=== PATIENT | female | born 1985 | race Caucasian/White ===

== ENCOUNTER 2017-06-08 19:15 | Emergency (ER) | payer OTHER ==
[2017-06-08] MEDS: DIPHTH,PERTUSS(ACELL),TET TOX 0.5 ML DISP.SYRIN. VAX IM (20:45)
[2017-06-08] MEDS: HYDROcodone/APAP 5/325MG 1 TAB TABLET PO (20:45)
== END 2017-06-08 21:06 | disposition home or self-care (01) ==
LOC: ER 19:15
DX: S62.316A Displaced fracture of base of fifth metacarpal bone, right hand, initial encounter for closed fracture (principal); Z98.51 Tubal ligation status; Z88.1 Allergy status to other antibiotic agents; W22.8XXA Striking against or struck by other objects, initial encounter; Y93.89 Activity, other specified; Y92.89 Other specified places as the place of occurrence of the external cause; Y99.8 Other external cause status
CPT/HCPCS: 29125; 73110; 90471; 90715; 99284-25

== ENCOUNTER → 2017-06-14 | Outpatient (CLI) | payer OTHER ==
[2017-06-14] MEDS: IOHEXOL 300 MG/ML 100ML VIAL. IV (11:20)
== END | disposition home or self-care (01) ==
LOC: KCIC CT 10:48
DX: S62.101A Fracture of unspecified carpal bone, right wrist, initial encounter for closed fracture (principal); X58.XXXA Exposure to other specified factors, initial encounter; Y93.89 Activity, other specified; Y92.89 Other specified places as the place of occurrence of the external cause; Y99.8 Other external cause status
CPT/HCPCS: Q9967

== ENCOUNTER 2018-09-15 13:28 | Inpatient (IN) | payer OTHER ==
[~2018-09-15] VITALS: Ht 152.4 cm; Wt 90.5 kg
[~2018-09-15 13:28] MED LIST: HYDR-3164 PO
[2018-09-15] MEDS ORDERED: IV NORMAL SALINE 1000ML BAG 1,000 ML IV SCH (13:51)
[2018-09-15] MEDS ORDERED: KETOROLAC 30 MG/ML VIAL. IV ONE (14:00)
[2018-09-15] MEDS ORDERED: ONDANSETRON PF 4 MG/2 ML VIAL. IV ONE (14:00)
--- NOTE | 2018-09-15 14:05 | PHYS DOC ---
Past Medical History Past Medical History: Kidney Stone Past Surgical History: Tubal ligation Additional Past Surgical Histo: HERNIA Smoking: Cigarettes Alcohol Use: None Drug Use: None Adult General Chief Complaint Chief Complaint: FLANK PAIN [facility] HPI Patient is a 33 year old female who presents with complaining of left flank pain. Patient complaining of sudden onset of left flank pain 3 days ago as a constant sharp pain with radiation to the left lower quadrant. Patient states the pain getting better and worse and rated her pain 7/10 at arrival to ER. Patient states she had 2 episodes of vomiting 3 days ago when her pain was started and was seen at another emergency room and had 4.6 mm distal left side and was advised to follow-up with urologist as needed. Patient states she ran out of hydrocodone but her pain is not getting better and she didn't pass this stone. Patient denies fever and chills, , diarrhea and constipation. Review of Systems Review of Systems Constitutional: Denies fever or chills [] Eyes: Denies change in visual acuity, redness, or eye pain [] HENT: Denies nasal congestion or sore throat [] Respiratory: Denies cough or shortness of breath [] Cardiovascular: No additional information not addressed in HPI [] GI: Reports abdominal pain, nausea, vomiting, denies bloody stools or diarrhea [ ] : Denies dysuria or hematuria, reports flank pain [] Musculoskeletal: Denies back pain or joint pain [] Integument: Denies rash or skin lesions [] Neurologic: Denies headache, focal weakness or sensory changes [] Endocrine: Denies polyuria or polydipsia [] All other systems were reviewed and found to be within normal limits, except as documented in this note. Current Medications Current Medications Current Medications Medications (Trade) Dose Ordered Sig/Greer Start Time Stop Time Status Last Admin Dose Admin Ceftriaxone Sodium (Rocephin) 1 gm 1X ONCE 09/15/18 15:45 09/15/18 15:46 DC 09/15/18 15:52 1 GM Fentanyl Citrate (Fentanyl 2ml Vial) 100 mcg STK-MED ONCE 09/15/18 14:41 09/15/18 14:42 DC Ketorolac Tromethamine (Toradol 30mg Vial) 30 mg 1X ONCE 09/15/18 14:00 09/15/18 14:01 DC 09/15/18 14:02 30 MG Ondansetron HCl (Zofran) 4 mg 1X ONCE 09/15/18 14:00 09/15/18 14:01 DC 09/15/18 14:02 4 MG Sodium Chloride 1,000 ml @ 1,000 mls/hr 1X ONCE 09/15/18 15:45 09/15/18 16:44 DC 09/15/18 15:43 1,000 MLS/HR Allergies Allergies Allergies Coded Allergies Type Severity Reaction Last Updated Verified azithromycin Allergy Intermediate 09/15/18 Yes Physical Exam Physical Exam Constitutional: Well developed, well nourished, moderate distress, non-toxic appearance. [] HENT: Normocephalic, atraumatic, oropharynx moist. Eyes: PERRLA, EOMI, conjunctiva normal, no discharge. [] Neck: Normal range of motion, no tenderness, supple, no stridor. [] Cardiovascular:Heart rate regular rhythm, no murmur [] Lungs & Thorax: Bilateral breath sounds clear to auscultation [] Abdomen: Bowel sounds normal, soft, no tenderness, no masses, no pulsatile masses. [] Skin: Warm, dry, no erythema, no rash. [] Back: No tenderness, mild left CVA tenderness. [] Extremities: No tenderness, no cyanosis, no clubbing, ROM intact, no edema. [] Neurologic: Alert and oriented X 3, normal motor function, normal sensory function, no focal deficits noted. [] Psychologic: Affect normal, judgement normal, mood normal. [] Current Patient Data Vital Signs Vital Signs Date Time Temp Pulse Resp B/P (MAP) Pulse Ox O2 Delivery O2 Flow Rate FiO2 09/15/18 15:14 18 09/15/18 14:47 114/62 (79) 09/15/18 13:33 97.6 89 98 97.6 Lab Values Laboratory Tests Test 09/15/18 13:30 09/15/18 13:45 09/15/18 13:52 09/15/18 15:55 Urine Collection Type Unknown Urine Color Dk yellow Urine Clarity Clear Urine pH 6.0 Urine Specific Lillian 1.025 Urine Protein 100 mg/dL (NEG-TRACE) Urine Glucose (UA) Negative mg/dL (NEG) Urine Ketones (Stick) >=80 mg/dL (NEG) Urine Blood Large (NEG) Urine Nitrite Negative (NEG) Urine Bilirubin Moderate (NEG) Urine Urobilinogen Dipstick 2.0 mg/dL (0.2 mg/dL) Urine Leukocyte Esterase Moderate (NEG) Urine RBC 20-40 /HPF (0-2) Urine WBC 20-40 /HPF (0-4) Urine Squamous Epithelial Cells Few /LPF Urine Bacteria Moderate /HPF (0-FEW) Urine Mucus Marked /LPF Urine Opiates Screen Pos (NEG) Urine Methadone Screen Neg (NEG) Urine Barbiturates Neg (NEG) Urine Phencyclidine Screen Neg (NEG) Urine Amphetamine/Methamphetamine Neg (NEG) Urine Benzodiazepines Screen Neg (NEG) Urine Cocaine Screen Neg (NEG) Urine Cannabinoids Screen Pos (NEG) Urine Ethyl Alcohol Neg (NEG) White Blood Count 14.7 x10^3/uL (4.0-11.0) H Red Blood Count 5.02 x10^6/uL (3.50-5.40) Hemoglobin 14.1 g/dL (12.0-15.5) Hematocrit 42.4 % (36.0-47.0) Mean Corpuscular Volume 84 fL (79-100) Mean Corpuscular Hemoglobin 28 pg (25-35) Mean Corpuscular Hemoglobin Concent 33 g/dL (31-37) Red Cell Distribution Width 16.2 % (11.5-14.5) H Platelet Count 129 x10^3/uL (140-400) L Neutrophils (%) (Auto) 86 % (31-73) H Lymphocytes (%) (Auto) 10 % (24-48) L Monocytes (%) (Auto) 2 % (0-9) Eosinophils (%) (Auto) 1 % (0-3) Basophils (%) (Auto) 0 % (0-3) Neutrophils # (Auto) 12.6 x10^3uL (1.8-7.7) H Lymphocytes # (Auto) 1.5 x10^3/uL (1.0-4.8) Monocytes # (Auto) 0.4 x10^3/uL (0.0-1.1) Eosinophils # (Auto) 0.2 x10^3/uL (0.0-0.7) Basophils # (Auto) 0.0 x10^3/uL (0.0-0.2) Segmented Neutrophils % 66 % (35-66) Band Neutrophils % 15 % (0-9) H Lymphocytes % 13 % (24-48) L Monocytes % 1 % (0-10) Eosinophils % 5 % (0-5) Toxic Granulation Slight Toxic Vacuolation Slight Platelet Estimate Decreased (ADEQUATE) Sodium Level 136 mmol/L (136-145) Potassium Level 3.5 mmol/L (3.5-5.1) Chloride Level 102 mmol/L (98-107) Carbon Dioxide Level 25 mmol/L (21-32) Anion Gap 9 (6-14) Blood Urea Nitrogen 14 mg/dL (7-20) Creatinine 0.8 mg/dL (0.6-1.0) Estimated GFR (Cockcroft-Gault) 82.6 BUN/Creatinine Ratio 18 (6-20) Glucose Level 87 mg/dL (70-99) Calcium Level 8.8 mg/dL (8.5-10.1) Total Bilirubin 1.0 mg/dL (0.2-1.0) Aspartate Amino Transferase (AST) 23 U/L (15-37) Alanine Aminotransferase (ALT) 20 U/L (14-59) Alkaline Phosphatase 90 U/L (46-116) Total Protein 7.2 g/dL (6.4-8.2) Albumin 3.1 g/dL (3.4-5.0) L Albumin/Globulin Ratio 0.8 (1.0-1.7) L Lipase 37 U/L (73-393) L POC Urine HCG, Qualitative Hcg negative (Negative) Lactic Acid Level 0.8 mmol/L (0.4-2.0) Laboratory Tests 09/15/18 13:45 Laboratory Tests 09/15/18 13:45 EKG EKG [] Radiology/Procedures Radiology/Procedures [facility] [address] [place], [place] [id number] IMAGING REPORT Signed PATIENT: LEI SHEARER ACCOUNT: [id number] : 1985 LOCATION: ER AGE: 33 SEX: F EXAM STATUS: REG ER ORD. PHYSICIAN: YADI TREADWELL MD REASON: left flank pain PROCEDURE: CT ABDOMEN PELVIS WO CONTRAST Abdominal and Pelvis CT, Without Contrast: History: Left flank pain. Comparison: None. Procedure: Axial images are obtained of the abdomen and pelvis, without IV or oral contrast. CT Abdomen without Contrast: Findings: Evaluation of solid organs is limited without contrast. Evaluation of stomach and bowel is limited without oral contrast. Liver: Normal. Spleen: Normal. Pancreas: Normal. Adrenal Glands: Normal. Kidneys: There is moderate left hydronephrosis and left hydroureter perinephric edema. There is a small nonobstructive stone in the left renal pelvis. There is no free air or free fluid. There is no lymphadenopathy. Impression: Please see CT Pelvis without Contrast. End Impression. CT Pelvis without Contrast: Findings: The urinary bladder is mostly collapsed. There is a 6 mm stone at left UVJ. There is an IUD in the uterus which appears well seated. There is a 2.1 cm dominant follicle versus small cyst in the right ovary. The appendix is normal. There is retroperitoneal edema on the left. There is no free fluid. There is no lymphadenopathy. There is no pericolonic inflammation identified. Impression: 6 mm stone left UVJ with moderate left hydroureter and hydronephrosis. End impression PQRS Compliance Statement: One or more of the following individualized dose reduction techniques were utilized for this examination: 1. Automated exposure control 2. Adjustment of the mA and/or kV according to patient size 3. Use of iterative reconstruction technique Electronically signed by: Jo Ann Boyd III, MD (09/15/2018 3:37 PM) [id number] DICTATED and SIGNED BY: JO ANN BOYD III, MD DATE: 09/15/18 1537 Course & Med Decision Making Course & Med Decision Making Pertinent Labs and Imaging studies reviewed. (See chart for details) Evaluation of patient in ER showed 33-year-old female patient with left flank pain and kidney stone and 2 other emergency room visits at [facility] with continued to have pain. Patient treated with several days of pain medication. CT showed 6 mm stone in left ureter junction with moderate hydronephrosis. Patient had UTI and Rocephin was started. Patient requiring admission for further evaluation and treatment. Discussed with Dr. Serrato who is in agreement with admission. Discussed findings and plan with patient and family, who acknowledge understanding and agreement. Dragon Disclaimer Dragon Disclaimer This electronic medical record was generated, in whole or in part, using a voice recognition dictation system. Departure Departure Impression: Primary Impression: Renal colic Additional Impressions: UTI (urinary tract infection) Ureterolithiasis Hydronephrosis Intractable pain Tobacco abuse Tobacco abuse counseling Disposition: 09 ADMITTED INPATIENT (at 1605) Admitting Physician: Clara Serrato (accepted admission at 1603) Condition: IMPROVED Referrals: NO PCP (PCP) Problem Qualifiers Additional Impressions: UTI (urinary tract infection) Urinary tract infection type: site unspecified Hematuria presence: with hematuria Qualified Codes: N39.0 - Urinary tract infection, site not specified ; R31.9 - Hematuria, unspecified Hydronephrosis Hydronephrosis type: with ureteral calculous obstruction Qualified Codes: N13.2 - Hydronephrosis with renal and ureteral calculous obstruction YADI TREADWELL MD Sep 15, 2018 14:05
[2018-09-15 14:07] LABS: BILIRUBIN,URINE MODERATE (NEG); CLARITY,URINE CLEAR; NITRITE,URINE NEGATIVE (NEG); PROTEIN,URINE 100 mg/dL (NEG-TRACE)
[2018-09-15 14:08] LABS: BASO % 0 % (0-3); EOS # 0.2 x10^3/uL (0.0-0.7); EOS % 1 % (0-3); HEMATOCRIT 42.4 % (36.0-47.0); HEMOGLOBIN 14.1 g/dL (12.0-15.5); LYMPH # 1.5 x10^3/uL (1.0-4.8); LYMPH % 10 % (24-48); MEAN CORPUSCULAR HEMOGLOBIN 28 pg (25-35); MEAN CORPUSCULAR HGB CONC 33 g/dL (31-37); MEAN CORPUSCULAR VOLUME 84 fL (79-100); MONO # 0.4 x10^3/uL (0.0-1.1); MONO % 2 % (0-9); NEUT # 12.6 x10^3uL (1.8-7.7); NEUT % 86 % (31-73); PLATELET COUNT 129 x10^3/uL (140-400); RED BLOOD COUNT 5.02 x10^6/uL (3.50-5.40); RED CELL DISTRIBUTION WIDTH 16.2 % (11.5-14.5); WHITE BLOOD COUNT 14.7 x10^3/uL (4.0-11.0)
[2018-09-15 14:13] LABS: CALCIUM 8.8 mg/dL (8.5-10.1); CREATININE 0.8 mg/dL (0.6-1.0); GFR 82.6; POTASSIUM 3.5 mmol/L (3.5-5.1)
[2018-09-15 14:13] LABS: BARBITURATES NEG (NEG); BENZODIAZEPINES NEG (NEG); CANNABINOIDS POS (NEG); COCAINE NEG (NEG); METHADONE NEG (NEG); OPIATES POS (NEG); PHENCYCLIDINE NEG (NEG)
[2018-09-15 14:14] LABS: AMPHETAMINE/METHAMPHETAMINE NEG (NEG)
[2018-09-15 14:15] LABS: COLOR,URINE DK YELLOW
[2018-09-15 14:17] LABS: BACTERIA,URINE MODERATE /HPF (0-FEW); RBC,URINE 20-40 /HPF (0-2); SQUAMOUS EPITHELIAL CELL,UR FEW /LPF; WBC,URINE 20-40 /HPF (0-4)
[2018-09-15 14:19] LABS: ALBUMIN 3.1 g/dL (3.4-5.0); ALBUMIN/GLOBULIN RATIO 0.8 (1.0-1.7); TOTAL PROTEIN 7.2 g/dL (6.4-8.2)
[2018-09-15 14:30] LABS: % BANDS 15 % (0-9); % EOS 5 % (0-5); % LYMPHS 13 % (24-48); % MONOS 1 % (0-10); % SEGS 66 % (35-66); PLT ESTIMATE DECREASED (ADEQUATE)
[2018-09-15 14:32] LABS: TOXIC GRANULATION SLIGHT; TOXIC VACUOLATION SLIGHT
[2018-09-15] MEDS ORDERED: fentaNYL PF VIAL 100 MCG/2 ML VIAL ONE (14:41)
[2018-09-15] MEDS ORDERED: fentaNYL PF VIAL 100 MCG/2 ML VIAL IV ONE ×2 (14:45→16:30)
--- NOTE | 2018-09-15 15:40 | RAD ---
Abdominal and Pelvis CT, Without Contrast: History: Left flank pain. Comparison: None. Procedure: Axial images are obtained of the abdomen and pelvis, without IV or oral contrast. CT Abdomen without Contrast: Findings: Evaluation of solid organs is limited without contrast. Evaluation of stomach and bowel is limited without oral contrast. Liver: Normal. Spleen: Normal. Pancreas: Normal. Adrenal Glands: Normal. Kidneys: There is moderate left hydronephrosis and left hydroureter perinephric edema. There is a small nonobstructive stone in the left renal pelvis. There is no free air or free fluid. There is no lymphadenopathy. Impression: Please see CT Pelvis without Contrast. End Impression. CT Pelvis without Contrast: Findings: The urinary bladder is mostly collapsed. There is a 6 mm stone at left UVJ. There is an IUD in the uterus which appears well seated. There is a 2.1 cm dominant follicle versus small cyst in the right ovary. The appendix is normal. There is retroperitoneal edema on the left. There is no free fluid. There is no lymphadenopathy. There is no pericolonic inflammation identified. Impression: 6 mm stone left UVJ with moderate left hydroureter and hydronephrosis. End impression PQRS Compliance Statement: One or more of the following individualized dose reduction techniques were utilized for this examination: 1. Automated exposure control 2. Adjustment of the mA and/or kV according to patient size 3. Use of iterative reconstruction technique Electronically signed by: Caleb Hernandez III, MD (09/15/2018 3:37 PM) [id number]
[2018-09-15] MEDS ORDERED: cefTRIAXone IV Push 1 GM VIAL. IVP ONE (15:45)
[2018-09-15] MEDS ORDERED: IV NORMAL SALINE 1000ML BAG 1,000 ML IV ONE (15:45)
[2018-09-15] MEDS ORDERED: TRAM50TA PO (18:03)
[2018-09-15] MEDS ORDERED: ONDA8TAB15 PO (18:03)
[2018-09-15] MEDS ORDERED: TRAZ-86 PO (18:03)
[2018-09-15] MEDS: IV NORMAL SALINE 1000ML BAG 1,000 ML IV SCH (18:56)
[2018-09-15] MEDS ORDERED: ONDANSETRON PF 4 MG/2 ML VIAL. IV PRN (19:00)
[2018-09-15] MEDS ORDERED: fentaNYL PF VIAL 100 MCG/2 ML VIAL IV PRN (19:00)
[2018-09-15] MEDS: fentaNYL PF VIAL 100 MCG/2 ML VIAL IV PRN ×2 (19:04→21:28)
[2018-09-15] MEDS ORDERED: ACET325T9 PO (19:50)
[2018-09-15 19:55] VITALS: BP 125/81
[2018-09-15] MEDS ORDERED: traZODone 100 MG TABLET. PO PRN (20:00)
[2018-09-15] MEDS ORDERED: ACETAMINOPHEN 325 MG TABLET. PO PRN (20:00)
[2018-09-15] MEDS ORDERED: HYDROcodone/APAP 5/325MG 1 TAB TABLET PO PRN (20:00)
[2018-09-15] MEDS ORDERED: ZOLPIDEM 5 MG TABLET. PO PRN (21:30)
--- NOTE | 2018-09-15 22:46 | HP ---
ADMIT DATE: 09/15/2018 CHIEF COMPLAINT: Flank pain. HISTORY OF PRESENT ILLNESS: The patient is a pleasant, healthy 33-year-old female who presents with flank pain. It has been occurring for 3 days, but it got really sharp today, rated at 10 out of 10. She has a history of renal stones. We did a CAT scan showing another renal stone about 6 mm. Food makes her nauseated. She describes it as agonizing. I discussed the case with the ER physician. We are going to admit the patient and give her some IV fluids, pain meds, strain her urine and consult Urology. PAST MEDICAL HISTORY: Kidney stones and tubal ligation, hernia repair and tobacco abuse. ALLERGIES: None. FAMILY HISTORY: Renal stones. SOCIAL HISTORY: She does smoke. No drinking or drugs. MEDICATIONS: Reviewed, please refer to the MRAD. REVIEW OF SYSTEMS: GENERAL: No history of weight change, weakness or fevers. SKIN: No bruising, hair changes or rashes. EYES: No blurred, double or loss of vision. NOSE AND THROAT: No history of nosebleeds, hoarseness or sore throat. MUSCULOSKELETAL: She complains of flank pain. HEART: No history of palpitations, chest pain or shortness of breath on exertion. LUNGS: Denies cough, hemoptysis, wheezing or shortness of breath. GASTROINTESTINAL: Denies changes in appetite, vomiting, diarrhea or constipation. She complains of some nausea. GENITOURINARY: No history of frequency, urgency, hesitancy or nocturia. NEUROLOGIC: Denies history of numbness, tingling, tremor or weakness. PSYCHIATRIC: No history of panic, anxiety or depression. ENDOCRINE: No history of heat or cold intolerance, polyuria or polydipsia. EXTREMITIES: Denies muscle weakness, joint pain, pain on walking or stiffness. PHYSICAL EXAMINATION: VITAL SIGNS: Temperature afebrile, pulse 94, respirations 16, blood pressure 133/68. GENERAL: She is alert, cooperative, appears to be in pain. HEART: Normal S1, S2. LUNGS: Clear. ABDOMEN: Soft and tender in the flank. EXTREMITIES: Trace edema. SKIN: No rash. ENDOCRINE: No thyromegaly. LYMPHATICS: No cervical nodes. HEMATOPOIETIC: No bruising. PSYCHIATRIC: She is depressed. LABORATORY DATA: White count 14.7, hemoglobin 14.1, platelets 129. Electrolytes are normal. CT of the abdomen shows renal stone. Urinalysis shows moderate leukocyte esterase and 20-40 white cells. ASSESSMENT AND PLAN: Renal stone and urinary tract infection. The patient has been admitted. We will start IV fluids, IV antibiotics, p.r.n. pain meds. DVT prophylaxis. Full code. Home meds. Consult Urology. KORTNEY BAEZ DO DR: LAINA/maria elena JOB#: [id number] / [id number]
[2018-09-15] MEDS ORDERED: cefTRIAXone IV Push 1 GM VIAL. IVP SCH (23:00)
[2018-09-15 23:51] VITALS: BP 107/72
[2018-09-16] MEDS: IV NORMAL SALINE 1000ML BAG 1,000 ML IV SCH ×3 (03:15→12:50)
[2018-09-16 03:22] VITALS: BP 136/94
[2018-09-16 07:00] VITALS: BP 123/81
--- NOTE | 2018-09-16 08:38 | PDOC2 ---
UROLOGY CONSULT Date of Consult Date of Consult DATE: 09/16/18 TIME: 08:28 Reason for Consult Reason for Consult: 6 mm left stone in the left UVJ with moderate left hydroureter and hydronephrosis Source Source: Chart review, Patient History of Present Illness Reason for Visit: Patient is a pleasant 33 year old female who presented to ED last night with left flank pain and left lower abd pain. A CT scan was done and she was found ot have a 6 mm stone in the left UVJ with moderate left hydroureter and hydronephrosis. This is the second time she has had a stone. The first time was in 2010 and this one passed on its own. She denies nausea/vomiting, hematuria or dysuria. Her pain is about 5-6/10 and is on the left flank into her left lower abdomen. She is healthy overall with the exception of this problem with no history of any chronic health problems. She is agreeable to having a stent placed if it is the right thing for her condition. Past Medical History Cardiovascular: No pertinent hx Pulmonary: No pertinent hx GI: No pertinent hx Heme/Onc: No pertinent hx Hepatobiliary: No pertinent hx Psych: No pertinent hx Rheumatologic: No pertinent hx Infectious disease: No pertinent hx ENT: No pertinent hx Renal/: No pertinent hx Endocrine: No pertinent hx Dermatology: No pertinent hx Grav: 4 Para: 4 Current Problem List Problems: (1) Ureterolithiasis Current Medications Current Medications Current Medications Acetaminophen (Tylenol) 650 mg PRN Q4HRS PRN PO HEADACHE / TEMP Last administered on 09/16/18at 03:14; Start 09/15/18 at 20:00 Acetaminophen/ Hydrocodone Bitart (Lortab 5/325) 1 tab PRN Q4HRS PRN PO pain Last administered on 09/15/18at 21:32; Start 09/15/18 at 20:00 Ceftriaxone Sodium (Rocephin) 1 gm 1X ONCE IVP Last administered on 09/15/18at 15:52; Start 09/15/18 at 15:45; Stop 09/15/18 at 15:46; Status DC Ceftriaxone Sodium (Rocephin) 1 gm Q24H IVP ; Start 09/15/18 at 23:00; Stop at 23:03; Status DC Ceftriaxone Sodium (Rocephin) 1 gm Q24H IVP ; Start 09/16/18 at 16:00 Fentanyl Citrate (Fentanyl 2ml Vial) 25 mcg PRN Q2HR PRN IV MODERATE PAIN; Start 09/15/18 at 19:00 Fentanyl Citrate (Fentanyl 2ml Vial) 50 mcg 1X ONCE IV Last administered on at 14:44; Start 09/15/18 at 14:45; Stop 09/15/18 at 14:46; Status DC Fentanyl Citrate (Fentanyl 2ml Vial) 50 mcg 1X ONCE IV Last administered on at 16:00; Start 09/15/18 at 16:30; Stop 09/15/18 at 16:31; Status DC Fentanyl Citrate (Fentanyl 2ml Vial) 50 mcg PRN Q2HR PRN IV SEVERE PAIN Last administered on 09/15/18at 21:28; Start 09/15/18 at 19:00 Fentanyl Citrate (Fentanyl 2ml Vial) 100 mcg STK-MED ONCE .ROUTE ; Start at 14:41; Stop 09/15/18 at 14:42; Status DC Ketorolac Tromethamine (Toradol 30mg Vial) 30 mg 1X ONCE IV Last administered on 09/15/18at 14:02; Start 09/15/18 at 14:00; Stop 09/15/18 at 14:01; Status DC Ondansetron HCl (Zofran) 4 mg 1X ONCE IV Last administered on 09/15/18at 14:02 ; Start 09/15/18 at 14:00; Stop 09/15/18 at 14:01; Status DC Ondansetron HCl (Zofran) 4 mg PRN Q6HRS PRN IV NAUSEA/VOMITING; Start 09/15/18 at 19:00 Sodium Chloride 1,000 ml @ 150 mls/hr Q6H40M IV Last administered on at 03:15; Start 09/15/18 at 16:50; Stop 09/16/18 at 16:49 Sodium Chloride 1,000 ml @ 1,000 mls/hr 1X ONCE IV Last administered on at 15:43; Start 09/15/18 at 15:45; Stop 09/15/18 at 16:44; Status DC Sodium Chloride 1,000 ml @ 1,000 mls/hr Q1H IV Last administered on 09/15/18at 14:02; Start 09/15/18 at 13:51; Stop 09/15/18 at 14:50; Status DC Trazodone HCl (Desyrel) 100 mg PRN QHS PRN PO INSOMNIA Last administered on at 23:15; Start 09/15/18 at 20:00 Zolpidem Tartrate (Ambien) 5 mg PRN QHS PRN PO INSOMNIA; Start 09/15/18 at 21: 30; Status UNV Allergies Allergies: Coded Allergies: azithromycin (Verified Allergy, Intermediate, 09/15/18) ROS Review Of Systems: CONSTITUTIONAL: + Fever and feeling "hot" off and on EYES: No recent changes SKIN: No rash or itching CARDIOVASCULAR: No chest pain, syncope, palpitations, or edema RESPIRATORY: No SOB or cough GASTROINTESTINAL: + abd pain on the left lower side. NEUROLOGICAL: No headaches or weakness ENDOCRINE: No cold or heat intolerance GENITOURINARY: No urgency or frequency of urination MUSCULOSKELETAL: + back/flank pain on the left side, none on the right. LYMPHATICS: No enlarged lymph nodes PSYCHIATRIC: No anxiety or depression Physical Exam Physical Exam: General: Pleasant, no acute distress, well groomed Eyes: conjunctiva anicteric, eyes full range of motion ENT: moist oral mucosa, normal dentition Neck: Trachea midline, no masses Respiratory: unlabored breathing, not using accessory muscles Back: + CVA pain on the left side, non tender on the right. Abdomen: soft, + tender on the left side, non tender on the right. Skin: no rashes or skin lesions on visualized skin Psych: normal mood, affect. Alert and oriented x 3. Vitals VITALS Vital Signs Date Time Temp Pulse Resp B/P (MAP) Pulse Ox O2 Delivery O2 Flow Rate FiO2 09/16/18 03:22 100.6 90 20 136/94 (108) 94 Room Air 100.6 Labs Labs Laboratory Tests Test 09/15/18 13:30 09/15/18 13:45 09/15/18 13:52 09/15/18 15:55 Urine Collection Type Unknown Urine Color Dk yellow Urine Clarity Clear Urine pH 6.0 Urine Specific [place] 1.025 Urine Protein 100 mg/dL (NEG-TRACE) Urine Glucose (UA) Negative mg/dL (NEG) Urine Ketones (Stick) >=80 mg/dL (NEG) Urine Blood Large (NEG) Urine Nitrite Negative (NEG) Urine Bilirubin Moderate (NEG) Urine Urobilinogen Dipstick 2.0 mg/dL (0.2 mg/dL) Urine Leukocyte Esterase Moderate (NEG) Urine RBC 20-40 /HPF (0-2) Urine WBC 20-40 /HPF (0-4) Urine Squamous Epithelial Cells Few /LPF Urine Bacteria Moderate /HPF (0-FEW) Urine Mucus Marked /LPF Urine Opiates Screen Pos (NEG) Urine Methadone Screen Neg (NEG) Urine Barbiturates Neg (NEG) Urine Phencyclidine Screen Neg (NEG) Urine Amphetamine/Methamphetamine Neg (NEG) Urine Benzodiazepines Screen Neg (NEG) Urine Cocaine Screen Neg (NEG) Urine Cannabinoids Screen Pos (NEG) Urine Ethyl Alcohol Neg (NEG) White Blood Count 14.7 x10^3/uL (4.0-11.0) Red Blood Count 5.02 x10^6/uL (3.50-5.40) Hemoglobin 14.1 g/dL (12.0-15.5) Hematocrit 42.4 % (36.0-47.0) Mean Corpuscular Volume 84 fL (79-100) Mean Corpuscular Hemoglobin 28 pg (25-35) Mean Corpuscular Hemoglobin Concent 33 g/dL (31-37) Red Cell Distribution Width 16.2 % (11.5-14.5) Platelet Count 129 x10^3/uL (140-400) Neutrophils (%) (Auto) 86 % (31-73) Lymphocytes (%) (Auto) 10 % (24-48) Monocytes (%) (Auto) 2 % (0-9) Eosinophils (%) (Auto) 1 % (0-3) Basophils (%) (Auto) 0 % (0-3) Neutrophils # (Auto) 12.6 x10^3uL (1.8-7.7) Lymphocytes # (Auto) 1.5 x10^3/uL (1.0-4.8) Monocytes # (Auto) 0.4 x10^3/uL (0.0-1.1) Eosinophils # (Auto) 0.2 x10^3/uL (0.0-0.7) Basophils # (Auto) 0.0 x10^3/uL (0.0-0.2) Segmented Neutrophils % 66 % (35-66) Band Neutrophils % 15 % (0-9) Lymphocytes % 13 % (24-48) Monocytes % 1 % (0-10) Eosinophils % 5 % (0-5) Toxic Granulation Slight Toxic Vacuolation Slight Platelet Estimate Decreased (ADEQUATE) Sodium Level 136 mmol/L (136-145) Potassium Level 3.5 mmol/L (3.5-5.1) Chloride Level 102 mmol/L (98-107) Carbon Dioxide Level 25 mmol/L (21-32) Anion Gap 9 (6-14) Blood Urea Nitrogen 14 mg/dL (7-20) Creatinine 0.8 mg/dL (0.6-1.0) Estimated GFR (Cockcroft-Gault) 82.6 BUN/Creatinine Ratio 18 (6-20) Glucose Level 87 mg/dL (70-99) Calcium Level 8.8 mg/dL (8.5-10.1) Total Bilirubin 1.0 mg/dL (0.2-1.0) Aspartate Amino Transf (AST/SGOT) 23 U/L (15-37) Alanine Aminotransferase (ALT/SGPT) 20 U/L (14-59) Alkaline Phosphatase 90 U/L (46-116) Total Protein 7.2 g/dL (6.4-8.2) Albumin 3.1 g/dL (3.4-5.0) Albumin/Globulin Ratio 0.8 (1.0-1.7) Lipase 37 U/L (73-393) Bedside Urine HCG, Qualitative Hcg negative (Negative) Lactic Acid Level 0.8 mmol/L (0.4-2.0) Laboratory Tests Test 09/15/18 13:30 09/15/18 13:45 09/15/18 13:52 09/15/18 15:55 Urine Collection Type Unknown Urine Color Dk yellow Urine Clarity Clear Urine pH 6.0 Urine Specific [place] 1.025 Urine Protein 100 mg/dL (NEG-TRACE) Urine Glucose (UA) Negative mg/dL (NEG) Urine Ketones (Stick) >=80 mg/dL (NEG) Urine Blood Large (NEG) Urine Nitrite Negative (NEG) Urine Bilirubin Moderate (NEG) Urine Urobilinogen Dipstick 2.0 mg/dL (0.2 mg/dL) Urine Leukocyte Esterase Moderate (NEG) Urine RBC 20-40 /HPF (0-2) Urine WBC 20-40 /HPF (0-4) Urine Squamous Epithelial Cells Few /LPF Urine Bacteria Moderate /HPF (0-FEW) Urine Mucus Marked /LPF Urine Opiates Screen Pos (NEG) Urine Methadone Screen Neg (NEG) Urine Barbiturates Neg (NEG) Urine Phencyclidine Screen Neg (NEG) Urine Amphetamine/Methamphetamine Neg (NEG) Urine Benzodiazepines Screen Neg (NEG) Urine Cocaine Screen Neg (NEG) Urine Cannabinoids Screen Pos (NEG) Urine Ethyl Alcohol Neg (NEG) White Blood Count 14.7 x10^3/uL (4.0-11.0) Red Blood Count 5.02 x10^6/uL (3.50-5.40) Hemoglobin 14.1 g/dL (12.0-15.5) Hematocrit 42.4 % (36.0-47.0) Mean Corpuscular Volume 84 fL (79-100) Mean Corpuscular Hemoglobin 28 pg (25-35) Mean Corpuscular Hemoglobin Concent 33 g/dL (31-37) Red Cell Distribution Width 16.2 % (11.5-14.5) Platelet Count 129 x10^3/uL (140-400) Neutrophils (%) (Auto) 86 % (31-73) Lymphocytes (%) (Auto) 10 % (24-48) Monocytes (%) (Auto) 2 % (0-9) Eosinophils (%) (Auto) 1 % (0-3) Basophils (%) (Auto) 0 % (0-3) Neutrophils # (Auto) 12.6 x10^3uL (1.8-7.7) Lymphocytes # (Auto) 1.5 x10^3/uL (1.0-4.8) Monocytes # (Auto) 0.4 x10^3/uL (0.0-1.1) Eosinophils # (Auto) 0.2 x10^3/uL (0.0-0.7) Basophils # (Auto) 0.0 x10^3/uL (0.0-0.2) Segmented Neutrophils % 66 % (35-66) Band Neutrophils % 15 % (0-9) Lymphocytes % 13 % (24-48) Monocytes % 1 % (0-10) Eosinophils % 5 % (0-5) Toxic Granulation Slight Toxic Vacuolation Slight Platelet Estimate Decreased (ADEQUATE) Sodium Level 136 mmol/L (136-145) Potassium Level 3.5 mmol/L (3.5-5.1) Chloride Level 102 mmol/L (98-107) Carbon Dioxide Level 25 mmol/L (21-32) Anion Gap 9 (6-14) Blood Urea Nitrogen 14 mg/dL (7-20) Creatinine 0.8 mg/dL (0.6-1.0) Estimated GFR (Cockcroft-Gault) 82.6 BUN/Creatinine Ratio 18 (6-20) Glucose Level 87 mg/dL (70-99) Calcium Level 8.8 mg/dL (8.5-10.1) Total Bilirubin 1.0 mg/dL (0.2-1.0) Aspartate Amino Transf (AST/SGOT) 23 U/L (15-37) Alanine Aminotransferase (ALT/SGPT) 20 U/L (14-59) Alkaline Phosphatase 90 U/L (46-116) Total Protein 7.2 g/dL (6.4-8.2) Albumin 3.1 g/dL (3.4-5.0) Albumin/Globulin Ratio 0.8 (1.0-1.7) Lipase 37 U/L (73-393) Bedside Urine HCG, Qualitative Hcg negative (Negative) Lactic Acid Level 0.8 mmol/L (0.4-2.0) Images Images CT ABD/PELVIS Impression: 6 mm stone left UVJ with moderate left hydroureter and hydronephrosis. End impression PQRS Compliance Statement: One or more of the following individualized dose reduction techniques were utilized for this examination: 1. Automated exposure control 2. Adjustment of the mA and/or kV according to patient size 3. Use of iterative reconstruction technique Assessment/Plan Assessment/Plan 6 mm stone in the left UVJ with corresponding hydro: Pt had Rocephin at 1600 last night. Discussed options with patient and she is agreeable to surgery if necessary. KUB to check stone position. Continue hydration, to strain urine. Continue pain and nausea control We will take patient to OR today for cysto with left stent placement with Dr. Tejada of [facility] [place]. BARRY ENRIQUEZ APRN Sep 16, 2018 08:38
[2018-09-16] MEDS: fentaNYL PF VIAL 100 MCG/2 ML VIAL IV PRN ×2 (08:53→11:42)
[2018-09-16] MEDS ORDERED: KETOROLAC 30 MG/ML VIAL. IV PRN (10:30)
--- NOTE | 2018-09-16 10:41 | NUR ---
consent signed for csyto/stent placement. complains of severe headache. dr. haas here and ordered Toradol iv. iv site in right hand infiltrated and discontinued. remains npo
[2018-09-16 11:00] VITALS: BP 123/74
[2018-09-16] MEDS ORDERED: IOHEXOL 300 MG/ML 100ML VIAL. ONE (11:02)
[2018-09-16] MEDS ORDERED: LIDOCAINE 2% JELLY 6ML IN APPLICATOR. ONE (11:03)
[2018-09-16] MEDS ORDERED: fentaNYL PF VIAL 100 MCG/2 ML VIAL ONE ×2 (11:35→12:20)
[2018-09-16] MEDS ORDERED: fentaNYL PF VIAL 100 MCG/2 ML VIAL IV ONE ×2 (11:45)
--- NOTE | 2018-09-16 12:02 | PDOC ---
PROGRESS NOTES Chief Complaint Chief Complaint flank pain History of Present Illness History of Present Illness Patient laying in bed, complaining of headache today. She states it has been constant right sided headache since Sunday. She has cystoscopy scheduled for today. Vitals Vitals Vital Signs Date Time Temp Pulse Resp B/P (MAP) Pulse Ox O2 Delivery O2 Flow Rate FiO2 09/16/18 11:45 99.4 81 15 118/71 96 Room Air 99.4 Physical Exam General: Alert, Oriented X3, No acute distress Heart: Normal S1, Normal S2, No murmurs, Other (tachycardic) Lungs: Clear, Other (good inspiratory effort, symmetric chest expansion) Abdomen: Normal bowel sounds, Soft Extremities: No clubbing, No cyanosis, No edema Skin: No rashes, No breakdown, No significant lesion Labs LABS Laboratory Tests Test 09/15/18 13:30 09/15/18 13:45 09/15/18 13:52 09/15/18 15:55 Urine Collection Type Unknown Urine Color Dk yellow Urine Clarity Clear Urine pH 6.0 Urine Specific Omega 1.025 Urine Protein 100 mg/dL (NEG-TRACE) Urine Glucose (UA) Negative mg/dL (NEG) Urine Ketones (Stick) >=80 mg/dL (NEG) Urine Blood Large (NEG) Urine Nitrite Negative (NEG) Urine Bilirubin Moderate (NEG) Urine Urobilinogen Dipstick 2.0 mg/dL (0.2 mg/dL) Urine Leukocyte Esterase Moderate (NEG) Urine RBC 20-40 /HPF (0-2) Urine WBC 20-40 /HPF (0-4) Urine Squamous Epithelial Cells Few /LPF Urine Bacteria Moderate /HPF (0-FEW) Urine Mucus Marked /LPF Urine Opiates Screen Pos (NEG) Urine Methadone Screen Neg (NEG) Urine Barbiturates Neg (NEG) Urine Phencyclidine Screen Neg (NEG) Urine Amphetamine/Methamphetamine Neg (NEG) Urine Benzodiazepines Screen Neg (NEG) Urine Cocaine Screen Neg (NEG) Urine Cannabinoids Screen Pos (NEG) Urine Ethyl Alcohol Neg (NEG) White Blood Count 14.7 x10^3/uL (4.0-11.0) Red Blood Count 5.02 x10^6/uL (3.50-5.40) Hemoglobin 14.1 g/dL (12.0-15.5) Hematocrit 42.4 % (36.0-47.0) Mean Corpuscular Volume 84 fL (79-100) Mean Corpuscular Hemoglobin 28 pg (25-35) Mean Corpuscular Hemoglobin Concent 33 g/dL (31-37) Red Cell Distribution Width 16.2 % (11.5-14.5) Platelet Count 129 x10^3/uL (140-400) Neutrophils (%) (Auto) 86 % (31-73) Lymphocytes (%) (Auto) 10 % (24-48) Monocytes (%) (Auto) 2 % (0-9) Eosinophils (%) (Auto) 1 % (0-3) Basophils (%) (Auto) 0 % (0-3) Neutrophils # (Auto) 12.6 x10^3uL (1.8-7.7) Lymphocytes # (Auto) 1.5 x10^3/uL (1.0-4.8) Monocytes # (Auto) 0.4 x10^3/uL (0.0-1.1) Eosinophils # (Auto) 0.2 x10^3/uL (0.0-0.7) Basophils # (Auto) 0.0 x10^3/uL (0.0-0.2) Segmented Neutrophils % 66 % (35-66) Band Neutrophils % 15 % (0-9) Lymphocytes % 13 % (24-48) Monocytes % 1 % (0-10) Eosinophils % 5 % (0-5) Toxic Granulation Slight Toxic Vacuolation Slight Platelet Estimate Decreased (ADEQUATE) Sodium Level 136 mmol/L (136-145) Potassium Level 3.5 mmol/L (3.5-5.1) Chloride Level 102 mmol/L (98-107) Carbon Dioxide Level 25 mmol/L (21-32) Anion Gap 9 (6-14) Blood Urea Nitrogen 14 mg/dL (7-20) Creatinine 0.8 mg/dL (0.6-1.0) Estimated GFR (Cockcroft-Gault) 82.6 BUN/Creatinine Ratio 18 (6-20) Glucose Level 87 mg/dL (70-99) Calcium Level 8.8 mg/dL (8.5-10.1) Total Bilirubin 1.0 mg/dL (0.2-1.0) Aspartate Amino Transf (AST/SGOT) 23 U/L (15-37) Alanine Aminotransferase (ALT/SGPT) 20 U/L (14-59) Alkaline Phosphatase 90 U/L (46-116) Total Protein 7.2 g/dL (6.4-8.2) Albumin 3.1 g/dL (3.4-5.0) Albumin/Globulin Ratio 0.8 (1.0-1.7) Lipase 37 U/L (73-393) Bedside Urine HCG, Qualitative Hcg negative (Negative) Lactic Acid Level 0.8 mmol/L (0.4-2.0) Review of Systems Review of Systems headache, low grade fever Assessment and Plan Assessmemt and Plan Problems Medical Problems: (1) Hydronephrosis Status: Acute (2) Intractable pain Status: Acute (3) Tobacco abuse Status: Acute (4) Tobacco abuse counseling Status: Acute Assessment: Renal stone Left hyderonephrosis UTI Headache Tobaccoism Plan: Uro: cystoscopy planned today -appreciate recs Will start Ketoralac 30 mg IV q 6hr Antibiotics: rocephin 1 g q24 hr Monitor temperature curve Recheck labs in am IV fluids Home meds PT/OT DVT ppx Comment Review of Relevant I have reviewed the following items jeevan (where applicable) has been applied. Labs Laboratory Tests Test 09/15/18 13:30 09/15/18 13:45 09/15/18 13:52 09/15/18 15:55 Urine Collection Type Unknown Urine Color Dk yellow Urine Clarity Clear Urine pH 6.0 Urine Specific Omega 1.025 Urine Protein 100 mg/dL (NEG-TRACE) Urine Glucose (UA) Negative mg/dL (NEG) Urine Ketones (Stick) >=80 mg/dL (NEG) Urine Blood Large (NEG) Urine Nitrite Negative (NEG) Urine Bilirubin Moderate (NEG) Urine Urobilinogen Dipstick 2.0 mg/dL (0.2 mg/dL) Urine Leukocyte Esterase Moderate (NEG) Urine RBC 20-40 /HPF (0-2) Urine WBC 20-40 /HPF (0-4) Urine Squamous Epithelial Cells Few /LPF Urine Bacteria Moderate /HPF (0-FEW) Urine Mucus Marked /LPF Urine Opiates Screen Pos (NEG) Urine Methadone Screen Neg (NEG) Urine Barbiturates Neg (NEG) Urine Phencyclidine Screen Neg (NEG) Urine Amphetamine/Methamphetamine Neg (NEG) Urine Benzodiazepines Screen Neg (NEG) Urine Cocaine Screen Neg (NEG) Urine Cannabinoids Screen Pos (NEG) Urine Ethyl Alcohol Neg (NEG) White Blood Count 14.7 x10^3/uL (4.0-11.0) Red Blood Count 5.02 x10^6/uL (3.50-5.40) Hemoglobin 14.1 g/dL (12.0-15.5) Hematocrit 42.4 % (36.0-47.0) Mean Corpuscular Volume 84 fL (79-100) Mean Corpuscular Hemoglobin 28 pg (25-35) Mean Corpuscular Hemoglobin Concent 33 g/dL (31-37) Red Cell Distribution Width 16.2 % (11.5-14.5) Platelet Count 129 x10^3/uL (140-400) Neutrophils (%) (Auto) 86 % (31-73) Lymphocytes (%) (Auto) 10 % (24-48) Monocytes (%) (Auto) 2 % (0-9) Eosinophils (%) (Auto) 1 % (0-3) Basophils (%) (Auto) 0 % (0-3) Neutrophils # (Auto) 12.6 x10^3uL (1.8-7.7) Lymphocytes # (Auto) 1.5 x10^3/uL (1.0-4.8) Monocytes # (Auto) 0.4 x10^3/uL (0.0-1.1) Eosinophils # (Auto) 0.2 x10^3/uL (0.0-0.7) Basophils # (Auto) 0.0 x10^3/uL (0.0-0.2) Segmented Neutrophils % 66 % (35-66) Band Neutrophils % 15 % (0-9) Lymphocytes % 13 % (24-48) Monocytes % 1 % (0-10) Eosinophils % 5 % (0-5) Toxic Granulation Slight Toxic Vacuolation Slight Platelet Estimate Decreased (ADEQUATE) Sodium Level 136 mmol/L (136-145) Potassium Level 3.5 mmol/L (3.5-5.1) Chloride Level 102 mmol/L (98-107) Carbon Dioxide Level 25 mmol/L (21-32) Anion Gap 9 (6-14) Blood Urea Nitrogen 14 mg/dL (7-20) Creatinine 0.8 mg/dL (0.6-1.0) Estimated GFR (Cockcroft-Gault) 82.6 BUN/Creatinine Ratio 18 (6-20) Glucose Level 87 mg/dL (70-99) Calcium Level 8.8 mg/dL (8.5-10.1) Total Bilirubin 1.0 mg/dL (0.2-1.0) Aspartate Amino Transf (AST/SGOT) 23 U/L (15-37) Alanine Aminotransferase (ALT/SGPT) 20 U/L (14-59) Alkaline Phosphatase 90 U/L (46-116) Total Protein 7.2 g/dL (6.4-8.2) Albumin 3.1 g/dL (3.4-5.0) Albumin/Globulin Ratio 0.8 (1.0-1.7) Lipase 37 U/L (73-393) Bedside Urine HCG, Qualitative Hcg negative (Negative) Lactic Acid Level 0.8 mmol/L (0.4-2.0) Laboratory Tests Test 09/15/18 13:30 09/15/18 13:45 09/15/18 13:52 09/15/18 15:55 Urine Collection Type Unknown Urine Color Dk yellow Urine Clarity Clear Urine pH 6.0 Urine Specific Omega 1.025 Urine Protein 100 mg/dL (NEG-TRACE) Urine Glucose (UA) Negative mg/dL (NEG) Urine Ketones (Stick) >=80 mg/dL (NEG) Urine Blood Large (NEG) Urine Nitrite Negative (NEG) Urine Bilirubin Moderate (NEG) Urine Urobilinogen Dipstick 2.0 mg/dL (0.2 mg/dL) Urine Leukocyte Esterase Moderate (NEG) Urine RBC 20-40 /HPF (0-2) Urine WBC 20-40 /HPF (0-4) Urine Squamous Epithelial Cells Few /LPF Urine Bacteria Moderate /HPF (0-FEW) Urine Mucus Marked /LPF Urine Opiates Screen Pos (NEG) Urine Methadone Screen Neg (NEG) Urine Barbiturates Neg (NEG) Urine Phencyclidine Screen Neg (NEG) Urine Amphetamine/Methamphetamine Neg (NEG) Urine Benzodiazepines Screen Neg (NEG) Urine Cocaine Screen Neg (NEG) Urine Cannabinoids Screen Pos (NEG) Urine Ethyl Alcohol Neg (NEG) White Blood Count 14.7 x10^3/uL (4.0-11.0) Red Blood Count 5.02 x10^6/uL (3.50-5.40) Hemoglobin 14.1 g/dL (12.0-15.5) Hematocrit 42.4 % (36.0-47.0) Mean Corpuscular Volume 84 fL (79-100) Mean Corpuscular Hemoglobin 28 pg (25-35) Mean Corpuscular Hemoglobin Concent 33 g/dL (31-37) Red Cell Distribution Width 16.2 % (11.5-14.5) Platelet Count 129 x10^3/uL (140-400) Neutrophils (%) (Auto) 86 % (31-73) Lymphocytes (%) (Auto) 10 % (24-48) Monocytes (%) (Auto) 2 % (0-9) Eosinophils (%) (Auto) 1 % (0-3) Basophils (%) (Auto) 0 % (0-3) Neutrophils # (Auto) 12.6 x10^3uL (1.8-7.7) Lymphocytes # (Auto) 1.5 x10^3/uL (1.0-4.8) Monocytes # (Auto) 0.4 x10^3/uL (0.0-1.1) Eosinophils # (Auto) 0.2 x10^3/uL (0.0-0.7) Basophils # (Auto) 0.0 x10^3/uL (0.0-0.2) Segmented Neutrophils % 66 % (35-66) Band Neutrophils % 15 % (0-9) Lymphocytes % 13 % (24-48) Monocytes % 1 % (0-10) Eosinophils % 5 % (0-5) Toxic Granulation Slight Toxic Vacuolation Slight Platelet Estimate Decreased (ADEQUATE) Sodium Level 136 mmol/L (136-145) Potassium Level 3.5 mmol/L (3.5-5.1) Chloride Level 102 mmol/L (98-107) Carbon Dioxide Level 25 mmol/L (21-32) Anion Gap 9 (6-14) Blood Urea Nitrogen 14 mg/dL (7-20) Creatinine 0.8 mg/dL (0.6-1.0) Estimated GFR (Cockcroft-Gault) 82.6 BUN/Creatinine Ratio 18 (6-20) Glucose Level 87 mg/dL (70-99) Calcium Level 8.8 mg/dL (8.5-10.1) Total Bilirubin 1.0 mg/dL (0.2-1.0) Aspartate Amino Transf (AST/SGOT) 23 U/L (15-37) Alanine Aminotransferase (ALT/SGPT) 20 U/L (14-59) Alkaline Phosphatase 90 U/L (46-116) Total Protein 7.2 g/dL (6.4-8.2) Albumin 3.1 g/dL (3.4-5.0) Albumin/Globulin Ratio 0.8 (1.0-1.7) Lipase 37 U/L (73-393) Bedside Urine HCG, Qualitative Hcg negative (Negative) Lactic Acid Level 0.8 mmol/L (0.4-2.0) Medications Current Medications Sodium Chloride 1,000 ml @ 1,000 mls/hr Q1H IV Last administered on 09/15/18at 14:02; Start 09/15/18 at 13:51; Stop 09/15/18 at 14:50; Status DC Ondansetron HCl (Zofran) 4 mg 1X ONCE IV Last administered on 09/15/18at 14:02; Start 09/15/18 at 14:00; Stop 09/15/18 at 14:01; Status DC Ketorolac Tromethamine (Toradol 30mg Vial) 30 mg 1X ONCE IV Last administered on 09/15/18at 14:02; Start 09/15/18 at 14:00; Stop 09/15/18 at 14:01; Status DC Fentanyl Citrate (Fentanyl 2ml Vial) 50 mcg 1X ONCE IV Last administered on 09/15/18at 14:44; Start 09/15/18 at 14:45; Stop 09/15/18 at 14:46; Status DC Fentanyl Citrate (Fentanyl 2ml Vial) 100 mcg STK-MED ONCE .ROUTE ; Start 09/15/18 at 14:41; Stop 09/15/18 at 14:42; Status DC Sodium Chloride 1,000 ml @ 1,000 mls/hr 1X ONCE IV Last administered on 09/15/18at 15:43; Start 09/15/18 at 15:45; Stop 09/15/18 at 16:44; Status DC Ceftriaxone Sodium (Rocephin) 1 gm 1X ONCE IVP Last administered on 09/15/18at 15:52; Start 09/15/18 at 15:45; Stop 09/15/18 at 15:46; Status DC Fentanyl Citrate (Fentanyl 2ml Vial) 50 mcg 1X ONCE IV Last administered on 09/15/18at 16:00; Start 09/15/18 at 16:30; Stop 09/15/18 at 16:31; Status DC Sodium Chloride 1,000 ml @ 150 mls/hr Q6H40M IV Last administered on 09/16/18at 08:29; Start 09/15/18 at 16:50; Stop 09/16/18 at 16:49 Fentanyl Citrate (Fentanyl 2ml Vial) 50 mcg PRN Q2HR PRN IV SEVERE PAIN Last administered on 09/16/18at 11:42; Start 09/15/18 at 19:00 Fentanyl Citrate (Fentanyl 2ml Vial) 25 mcg PRN Q2HR PRN IV MODERATE PAIN; Start 09/15/18 at 19:00 Ondansetron HCl (Zofran) 4 mg PRN Q6HRS PRN IV NAUSEA/VOMITING; Start 09/15/18 at 19:00 Trazodone HCl (Desyrel) 100 mg PRN QHS PRN PO INSOMNIA Last administered on 09/15/18at 23:15; Start 09/15/18 at 20:00 Acetaminophen (Tylenol) 650 mg PRN Q4HRS PRN PO HEADACHE / TEMP Last administered on 09/16/18at 03:14; Start 09/15/18 at 20:00 Acetaminophen/ Hydrocodone Bitart (Lortab 5/325) 1 tab PRN Q4HRS PRN PO pain Last administered on 09/15/18at 21:32; Start 09/15/18 at 20:00 Zolpidem Tartrate (Ambien) 5 mg PRN QHS PRN PO INSOMNIA; Start 09/15/18 at 21:30; Status UNV Ceftriaxone Sodium (Rocephin) 1 gm Q24H IVP ; Start 09/15/18 at 23:00; Stop 09/15/18 at 23:03; Status DC Ceftriaxone Sodium (Rocephin) 1 gm Q24H IVP ; Start 09/16/18 at 16:00 Ketorolac Tromethamine (Toradol 30mg Vial) 30 mg PRN Q6HRS PRN IV PAIN Last administered on 09/16/18at 10:36; Start 09/16/18 at 10:30; Stop 09/21/18 at 10:29 Fentanyl Citrate (Fentanyl 2ml Vial) 100 mcg STK-MED ONCE .ROUTE ; Start 09/16/18 at 11:35; Stop 09/16/18 at 11:36; Status DC Fentanyl Citrate (Fentanyl 2ml Vial) 50 mcg 1X ONCE IV ; Start 09/16/18 at 11:45; Stop 09/16/18 at 11:46; Status DC Fentanyl Citrate (Fentanyl 2ml Vial) 100 mcg 1X ONCE IV ; Start 09/16/18 at 11:45; Stop 09/16/18 at 11:46; Status DC Active Scripts Active [place] 5-325 Tablet (Acetaminophen/Hydrocodone Bitart) 1 Each Tablet 1-2 Tab PO Q4-6HRS Reported Tylenol (Acetaminophen) 325 Mg Tablet 2 Tab PO PRN Q4HRS Ondansetron Odt (Ondansetron) 8 Mg Tab.rapdis 8 Mg PO Q8HRS PRN Tramadol Hcl 50 Mg Tablet 50 Mg PO Q4-6HRS PRN Trazodone Hcl 100 Mg Tablet 100 Mg PO HS PRN Vitals/I & O Vital Sign - Last 24 Hours 09/15/18 09/15/18 09/15/18 09/15/18 13:33 14:44 14:47 15:14 Temp 97.6 97.6 Pulse 89 Resp 16 16 18 B/P (MAP) 141/77 (98) 114/62 (79) Pulse Ox 98 09/15/18 09/15/18 09/15/18 09/15/18 16:00 16:30 19:04 19:55 Pulse 69 Resp 16 16 19 B/P (MAP) 125/81 (96) Pulse Ox 96 O2 Delivery Room Air Room Air 09/15/18 09/15/18 09/15/18 09/15/18 20:00 21:28 21:32 21:59 Resp 20 20 20 Pulse Ox 96 96 O2 Delivery Room Air Room Air Room Air 09/15/18 09/15/18 09/16/18 09/16/18 22:32 23:51 03:22 07:00 Temp 98.3 100.6 99.3 98.3 100.6 99.3 Pulse 61 90 77 Resp 20 17 20 18 B/P (MAP) 107/72 (84) 136/94 (108) 123/81 (95) Pulse Ox 96 97 94 96 O2 Delivery Room Air Room Air Room Air Room Air 09/16/18 09/16/18 09/16/18 09/16/18 08:00 08:53 09:30 11:00 Temp 99.4 99.4 Pulse 77 Resp 20 18 B/P (MAP) 123/74 (90) Pulse Ox 96 95 O2 Delivery Room Air Room Air Room Air 09/16/18 09/16/18 11:42 11:45 Temp 99.4 99.4 Pulse 81 Resp 15 15 B/P (MAP) 118/71 Pulse Ox 95 96 O2 Delivery Room Air Room Air Intake and Output 09/15/18 09/15/18 09/16/18 14:59 22:59 06:59 Intake Total 2200 ml 500 ml Output Total 150 ml 200 ml Balance 2050 ml 300 ml KORTNEY BAEZ III DO Sep 16, 2018 12:01
[2018-09-16] MEDS ORDERED: FAMOTIDINE 20 MG/2 ML VIAL ONE (12:18)
[2018-09-16] MEDS ORDERED: PROPOFOL 20 ML IV ONE (12:18)
[2018-09-16] MEDS ORDERED: ONDANSETRON PF 4 MG/2 ML VIAL. ONE (12:18)
[2018-09-16] MEDS ORDERED: DEXAMETHASONE SOD PHOS 20 MG/5 ML VIAL. ONE (12:18)
[2018-09-16] MEDS ORDERED: LIDOCAINE 2% PF 5 ML VIAL. ONE (12:18)
[2018-09-16] MEDS ORDERED: MIDAZOLAM HCL/PF 2 MG/2 ML VIAL. ONE (12:20)
[2018-09-16] MEDS ORDERED: SEVOFLURANE 16 TO 30 MINUTES. IH ONE (12:53)
--- NOTE | 2018-09-16 13:04 | PDOC4 ---
OPERATIVE NOTE Date: Date: Sep 16, 2018 Pre-Op Diagnosis: L Uret calc Post-Op Diagnosis: same Procedure Performed: cysto, placement of L ureterl stent; RPG Surgeon: Terrell Anesthesia Type: gen Blood Loss: min Specimans Obtained: none Findings: nl bladder, mild distal ureterectasis; prox L ureter unrem Complications: neg Operative Note: Pt admin'd GA Pt placed in lith'y pos'n, prepped with Betadine paint SCD's n place Cysto performed w 21-F scope. Bladder unrem. UO"s in nl pos'n L RPG with Blaine catheter; no definite stone in distal ureter; there was mild distal L ureterectasis; there was incomplete drainage; It was felt a stent was indicated due to severity of sx. After placing a guidewire under fluoro, a 6 x 26 cm stent was placed under fluoro cx. Thedistal limb coiled in bladder. The bladder was emptied and scope removed. The string was taped to patient's lower abdomen. Pt was transferred to after emergence frm anesthesia. Plan: remove stent in 5-7 days. GRACIELA DIAZ MD Sep 16, 2018 13:04
[2018-09-16] MEDS ORDERED: POTASSIUM CL 20MEQ-0.45% NACL 1,000 ML IV SCH (13:07)
--- NOTE | 2018-09-16 13:14 | RAD ---
KUB without comparison for left-sided stone. FINDINGS: There is air distributed throughout the colon to the level of splenic flexure, with a normal appearance. Within the region of the descending colon, there is a single segment of abnormal appearing bowel gas suggesting inflammation of the colonic mucosa of the descending colon. There is a paucity of small bowel abdominal gas. No radiographically discernible stones are identified. An IUD is present. No significant osseous anomalies. IMPRESSION: 1. Abnormal appearance of the descending colon suggesting edema of the colonic mucosa. Consider further evaluation with CT scan of the abdomen and pelvis if clinically warranted. Electronically signed by: Yoel Lal MD (09/16/2018 1:11 PM) [id number]
[2018-09-16] MEDS ORDERED: PROCHLORPERAZINE 10 MG/2 ML VIAL. IV PRN (13:15)
[2018-09-16] MEDS ORDERED: PROCHLORPERAZINE 25 MG SUPP.RECT. PR PRN (13:15)
[2018-09-16] MEDS ORDERED: 0.9 % SODIUM CHLORIDE 10 ML DISP.SYRIN. IV PRN (13:15)
[2018-09-16] MEDS ORDERED: HYDROcodone/APAP 5/325MG 1 TAB TABLET PO PRN (13:15)
[2018-09-16] MEDS ORDERED: NALOXONE 0.4 MG/ML VIAL. IV PRN (13:15)
[2018-09-16] MEDS ORDERED: ONDANSETRON PF 4 MG/2 ML VIAL. IV PRN (13:15)
[2018-09-16 14:07] VITALS: BP 126/85
--- NOTE | 2018-09-16 14:15 | NUR ---
returned from recovery. she is alert and oriented x4. she denies headache and flank pain. iv infusing in her rac. given fluids and diet ordered.
[2018-09-16 14:26] VITALS: BP 135/83
--- NOTE | 2018-09-16 15:30 | NUR ---
Dr. haas paged regarding going home this evening. ordered obtained.
[2018-09-16] MEDS ORDERED: cefTRIAXone IV Push 1 GM VIAL. IVP SCH (16:00)
--- NOTE | 2018-09-16 16:00 | NUR ---
reviewed discharge instructions with patient. states she doesnt know her primary care doctor but has a place to go. instructed to follow up with her doctor in 1 week. she is also to call and follow up with Dr. Tejada in 1 week. will be going home on bactrim ds. she is to leave the "strings on her abdomen" and NOT to pull on them. verbalized understanding. she is place in shower after antibiotic given iv.
[2018-09-16] MEDS ORDERED: SULF1TAB24 PO (16:10)
--- NOTE | 2018-09-16 17:00 | NUR ---
reivewed discharge instructions with patient regarding follow up, with 2 doctors, antibiotic and to leave the strings on abdomen alone and are taped. written note about admission given to give her work. she can return to work09/[address] Tejada with no heavy lifting
[2018-09-16] MEDS ORDERED: LACTOBACILLUS RHAMNOSUS GG 1 CAPSULE. PO SCH (21:00)
== END 2018-09-16 17:15 | disposition home or self-care (01) | DRG 854 ==
LOC: ER 13:28 → 4 NORTH 15:58
PROVIDERS: ADMIT Internal Medicine; ATTEND Internal Medicine
PROC: BT1F1ZZ Fluoroscopy of Left Kidney, Ureter and Bladder using Low Osmolar Contrast (ICD-10-PCS; 2018-09-16)
PROC: 0T778DZ Dilation of Left Ureter with Intraluminal Device, Via Natural or Artificial Opening Endoscopic (ICD-10-PCS; principal; 2018-09-16 12:30)
DX: A41.9 Sepsis, unspecified organism (principal); N13.6 Pyonephrosis; F17.210 Nicotine dependence, cigarettes, uncomplicated; Z87.442 Personal history of urinary calculi; Z98.51 Tubal ligation status; Z88.1 Allergy status to other antibiotic agents; Z71.6 Tobacco abuse counseling
CPT/HCPCS: 36415; 74018; 74176; 74420; 80053; 80307; 81001; 81025; 83605; 83690; 85007; 85025; 87040; 87086; 87186; 96361; 96374; 96375; 96376; A7015; C2617; J0696; J1100; J1885; J2001; J2250; J2405; J2704; J3010; J3490; J7030; J7120; Q9967; 99285-25; C1769

== ENCOUNTER → 2018-10-14 | Day surgery (SDC) | payer OTHER ==
[~2018-10-14] MED LIST changes: +ACET325T9 PO; +HYDROmorphone 2 MG/ML VIAL IV PRN; +IV RINGERS,LACTATED 1000ML 1,000 ML IV SCH; +LIDOCAINE 1% PF 2 ML VIAL. ID PRN; +LIDOCAINE 2% PF 5 ML VIAL. ONE; +MORPHINE SULFATE 2 MG/ML VIAL. IV PRN; +ONDA8TAB15 PO; +ONDANSETRON PF 4 MG/2 ML VIAL. IV PRN; +PROCHLORPERAZINE 10 MG/2 ML VIAL. IV PRN; +PROPOFOL 20 ML IV ONE; +SULF1TAB24 PO; +TRAM50TA PO; +TRAZ-86 PO; +fentaNYL PF VIAL 100 MCG/2 ML VIAL IV PRN
--- NOTE | 2018-10-14 13:57 | PDOC4 ---
PROCEDURE Procedure EGD Indication: Recurrent epigastric pain Meds: per anesthesia Findings: E--Mildly irregular SQ junction. GEJ at 35cm. G--Normal D--Normal to second portion. Kellee. well. IMP: Minor SQJ irregularity, otherwise normal. REC: Evaluate GB. OTC PPI in the interim. F/u in 2 weeks. ANGELLA FIERRO MD October 14, 2018 13:57
[2018-10-14 14:12] VITALS: BP 124/88
[2018-10-14 17:08] LABS: U PREG PATIENT NEGATIVE (NEG)
== END | disposition home or self-care (01) ==
LOC: ENDOS 13:08
PROVIDERS: ATTEND Internal Medicine Gastroenterology
DX: K22.8 Other specified diseases of esophagus (principal); R10.13 Epigastric pain; F41.9 Anxiety disorder, unspecified; F32.9 Major depressive disorder, single episode, unspecified; Z88.8 Allergy status to other drugs, medicaments and biological substances; Z72.89 Other problems related to lifestyle; Z98.890 Other specified postprocedural states; Z98.51 Tubal ligation status
CPT/HCPCS: 43235; 81025; J2001; J2704

== ENCOUNTER → 2018-11-01 | Outpatient (CLI) | payer OTHER ==
[2018-10-14 14:12] VITALS: BP 124/88
[~2018-11-01] MED LIST changes: -HYDROmorphone 2 MG/ML VIAL IV PRN; -IV RINGERS,LACTATED 1000ML 1,000 ML IV SCH; -LIDOCAINE 1% PF 2 ML VIAL. ID PRN; -LIDOCAINE 2% PF 5 ML VIAL. ONE; -MORPHINE SULFATE 2 MG/ML VIAL. IV PRN; -ONDANSETRON PF 4 MG/2 ML VIAL. IV PRN; -PROCHLORPERAZINE 10 MG/2 ML VIAL. IV PRN; -PROPOFOL 20 ML IV ONE; -fentaNYL PF VIAL 100 MCG/2 ML VIAL IV PRN
--- NOTE | 2018-11-01 13:46 | KCIC ---
Abdominal ultrasound complete HISTORY: Gallstones. FINDINGS: Pancreas appears unremarkable. Proximal aorta is poorly seen, likely obscured by bowel gas. No definite mid or distal aortic aneurysm. Only a portion of the IVC is seen. Liver is not enlarged. Coarse echogenicity likely fatty infiltration. Limited penetration of the liver. No evidence of biliary ductal dilatation. There is an echogenic shadowing structure the gallbladder neck compatible with a large gallstone. This does not change position with left lateral decubitus scanning. No significant gallbladder wall thickening. Right kidney measures 10.8 seen longitudinal without hydronephrosis. Left kidney measures 10.0 cm longitudinal without hydronephrosis. Spleen is not enlarged. IMPRESSION: 1. Cholelithiasis. Stone appears to be impacted at the gallbladder neck. 2. Hepatic steatosis. Electronically signed by: Jasper Muller MD (11/01/2018 1:43 PM) [id number]
== END | disposition home or self-care (01) ==
LOC: KCIC US 09:29
PROVIDERS: ATTEND Internal Medicine Gastroenterology
DX: K80.80 Other cholelithiasis without obstruction (principal); K80.20 Calculus of gallbladder without cholecystitis without obstruction; K76.0 Fatty (change of) liver, not elsewhere classified
CPT/HCPCS: 76700

== ENCOUNTER → 2018-11-22 | Outpatient (CLI) | payer OTHER ==
[2018-10-14 14:12] VITALS: BP 124/88
[~2018-11-22] MED LIST changes: +DOCU-109 PO; +LORA0.5T PO; +OXYC1TAB15 PO
[2018-11-22 14:50] LABS: BASO % 0 % (0-3); EOS # 0.3 x10^3/uL (0.0-0.7); EOS % 2 % (0-3); HEMOGLOBIN 15.1 g/dL (12.0-15.5); LYMPH # 2.5 x10^3/uL (1.0-4.8); LYMPH % 16 % (24-48); MEAN CORPUSCULAR HEMOGLOBIN 29 pg (25-35); MEAN CORPUSCULAR HGB CONC 33 g/dL (31-37); MEAN CORPUSCULAR VOLUME 87 fL (79-100); MONO # 0.6 x10^3/uL (0.0-1.1); MONO % 4 % (0-9); NEUT # 12.6 x10^3uL (1.8-7.7); NEUT % 79 % (31-73); PLATELET COUNT 304 x10^3/uL (140-400); RED BLOOD COUNT 5.21 x10^6/uL (3.50-5.40); RED CELL DISTRIBUTION WIDTH 14.9 % (11.5-14.5); WHITE BLOOD COUNT 16.1 x10^3/uL (4.0-11.0)
[2018-11-22 15:14] LABS: ALBUMIN 3.7 g/dL (3.4-5.0); CALCIUM 8.9 mg/dL (8.5-10.1); CREATININE 0.8 mg/dL (0.6-1.0); GFR 82.6; POTASSIUM 4.2 mmol/L (3.5-5.1); TOTAL BILIRUBIN 0.7 mg/dL (0.2-1.0)
--- NOTE | 2018-11-22 16:07 | NUR ---
JUST FAXED PRE - OP TEST REPORTS TO 'S OFFICE FOR REVIEW AT 2473 11/22/2018 AND RECEIVED TRANSMITTAL CONFIRMATION.
[2018-11-22 16:25] LABS: % BANDS 10 % (0-9); % EOS 6 % (0-5); % LYMPHS 20 % (24-48); % MONOS 3 % (0-10); % SEGS 61 % (35-66); PLT ESTIMATE ADEQUATE (ADEQUATE)
== END | disposition home or self-care (01) ==
LOC: SURGPAT 13:45
PROVIDERS: ATTEND Surgery
DX: Z01.818 Encounter for other preprocedural examination (principal); K80.20 Calculus of gallbladder without cholecystitis without obstruction
CPT/HCPCS: 36415; 80048; 82040; 82247; 85007; 85025

== ENCOUNTER 2018-11-25 09:19 | Day surgery (SDC) | payer OTHER ==
[~2018-11-25 09:19] MED LIST changes: +BUPIVAC MPF-EPI 0.5%-1:200000 30 ML VIAL. ONE; -DOCU-109 PO; +GLUCAGON,HUMAN RECOMBINANT 1 MG/ML VIAL. ONE; +HYDROmorphone 2 MG/ML VIAL IV PRN; +IOHEXOL 300 MG/ML 50 ML VIAL. ONE; +IV RINGERS,LACTATED 1000ML 1,000 ML IV SCH; +LIDOCAINE 1% PF 2 ML VIAL. ID PRN; +MORPHINE SULFATE 2 MG/ML VIAL. IV PRN; +ONDANSETRON PF 4 MG/2 ML VIAL. IV PRN; -OXYC1TAB15 PO; +PROCHLORPERAZINE 10 MG/2 ML VIAL. IV PRN; +SURGICEL HEMOSTAT 4X8 EACH. ONE; +fentaNYL PF VIAL 100 MCG/2 ML VIAL IV PRN
[2018-11-25] MEDS ORDERED: DEXAMETHASONE SOD PHOS 4 MG/ML VIAL ONE (09:40)
[2018-11-25] MEDS ORDERED: LIDOCAINE 2% PF 5 ML VIAL. ONE (09:40)
[2018-11-25] MEDS ORDERED: ONDANSETRON PF 4 MG/2 ML VIAL. ONE (09:40)
[2018-11-25] MEDS ORDERED: PROPOFOL 20 ML IV ONE (09:40)
[2018-11-25] MEDS ORDERED: MIDAZOLAM HCL/PF 2 MG/2 ML VIAL. ONE (09:41)
[2018-11-25] MEDS ORDERED: fentaNYL PF VIAL 100 MCG/2 ML VIAL ONE ×3 (09:41→11:28)
[2018-11-25] MEDS ORDERED: ROCURONIUM 50 MG/5 ML VIAL. ONE (09:41)
[2018-11-25 09:42] LABS: U PREG PATIENT NEGATIVE (NEG)
[2018-11-25] MEDS ORDERED: KETOROLAC 30 MG/ML INJ FOR OR. INJ ONE (10:06)
[2018-11-25] MEDS ORDERED: FAMOTIDINE 20 MG/2 ML VIAL ONE (10:07)
[2018-11-25] MEDS ORDERED: SEVOFLURANE 61 TO 120 MINUTES. IH ONE (10:49)
[2018-11-25] MEDS ORDERED: NEOSTIGMINE METHYLSULFATE 5 MG/5 ML SYRINGE. ONE (10:53)
[2018-11-25] MEDS ORDERED: GLYCOPYRROLATE 1 MG/5 ML VIAL. ONE (10:54)
[2018-11-25] MEDS ORDERED: SEVOFLURANE 31 TO 60 MINUTES. IH ONE (10:59)
--- NOTE | 2018-11-25 11:01 | RAD ---
Examination: CHOLANGIOGRAM INTRAOPERATIVE History: Gallstones Comparison/Correlation: None Findings: Fluoroscopy was utilized for 10 seconds. 2 images were provided. Cholecystectomy is evident. Contrast opacifies the common duct and intrahepatic biliary tree. Contrast is noted within the cystic duct. No extravasation identified. No suspicious filling defects noted. No stricture. Slightly lobulated contour of distal common bile duct margin is seen and nonspecific. Impression: Cholecystectomy. No extravasation of contrast. No strictures. Electronically signed by: Mansoor Miramontes MD (11/25/2018 10:58 AM) [facility]
[2018-11-25] MEDS: fentaNYL PF VIAL 100 MCG/2 ML VIAL IV PRN ×3 (11:31→12:19)
--- NOTE | 2018-11-25 12:09 | DISCH ---
DISCHARGE INSTRUCTIONS Condition on Discharge Condition on Discharge: Stable Activity After Discharge Activity Instructions for Disc: Activity as tolerated, Avoid exertion, Walk in house, Other, see below Lifting Instructions after Dis: No heavy lifting Diet after Discharge Diet after Discharge: Regular Wound Incision Care Wound/Incision Care: Ice to area for comfort Other wound/incision instructi: september Follow-Up Follow up with: Akil next week Treatment/Equipment after DC Adaptive Equipment Issued: None ROXANNE HOLDER MD Nov 25, 2018 12:09
--- NOTE | 2018-11-25 12:14 | PDOC ---
BRIEF OPERATIVE NOTE Date: Nov 25, 2018 Pre-Op Diagnosis symptomatic cholelithiasis Post-Op Diagnosis same Procedure Performed l/s kvng with tessa Surgeon Akil [employer] Trimmer Ann Marie CLIFTON Anesthesia Type: General Blood Loss 10cc IV Fluid 900cc Specimens Obtained GB Findings supple GB with omental adhesions, normal grams Complications none Operative Note Wk # [id number] ROXANNE HOLDER MD Nov 25, 2018 12:14
[2018-11-25] MEDS ORDERED: OXYC1TAB15 PO (12:23)
[2018-11-25] MEDS ORDERED: DOCU-109 PO (12:23)
[2018-11-25] MEDS ORDERED: oxyCODONE/APAP 5/325 1 TAB TABLET PO ONE (12:30)
[2018-11-25 13:00] VITALS: BP 119/72
--- NOTE | 2018-11-25 15:37 | OP ---
DATE OF SURGERY: 11/25/2018 PREOPERATIVE DIAGNOSIS: Symptomatic cholelithiasis. POSTOPERATIVE DIAGNOSIS: Symptomatic cholelithiasis. PROCEDURE: Laparoscopic cholecystectomy with cholangiograms. SURGEON: Mikhail Holder MD ANESTHESIA: General endotracheal. WAISTBAND SETTER LOCKSTITCH: ELODIA Summers. IV FLUID: 900. ESTIMATED BLOOD LOSS: 10. INDICATIONS: The patient is a 33-year-old with cholelithiasis and postprandial nausea and right upper quadrant pain. OPERATIVE FINDINGS: The liver was smooth and sharp. The gallbladder was supple with omental adhesions. Visual inspection of the remainder of the abdomen failed to reveal obvious abnormalities. DESCRIPTION OF PROCEDURE: The patient was brought to the operating suite, given a general endotracheal anesthetic and the abdomen was prepped and draped in usual sterile fashion. A supraumbilical incision was infiltrated with local anesthetic, incised and a 5 mm Visiport used to safely gain access into the abdominal cavity, taking care to avoid injury to abdominal contents. Pneumoperitoneum was established. Camera was inserted. Inspection carried out with results as noted above. With the table rolled to the left in reverse Trendelenburg, the epigastric, midclavicular, and lateral ports were placed under direct vision. The gallbladder was retracted superolaterally and omental adhesions were swept off carefully with cautery and blunt dissection, taking care to avoid injury to the adjacent bowel. A small area of oozing from the omentum was controlled with 2 clips. The cystic duct and cystic artery were identified. The duct was clipped on the gallbladder side. Cholangiograms were made. These were normal. In light of this, the catheter was removed. The cystic duct was clipped x 3 and divided, taking care to avoid injury or compromise the common duct. The cystic artery was clipped x 2 and divided and gallbladder freed from the bed and placed in an EndoCatch bag. No bleeding from the fossa or evidence of a bile leak was seen. Table returned to level. Gallbladder delivered through the epigastric incision. Epigastric incision closed with interrupted 0 Vicryl suture. Intra-abdominal pressure decreased to 6 cm of water. No bleeding from the epigastric closure or from the midclavicular or lateral port sites after their removal. Abdomen decompressed, camera slowly removed, no bleeding seen. Skin incisions were closed with subcuticular 4-0 Monocryl. Steri-Strips and sterile dressings applied. The patient was awakened from her anesthetic and taken to the recovery room in satisfactory condition. MIKHAIL HOLDER MD DR: CLARICE/maria elena JOB#: [id number] / [id number]
--- NOTE | 2018-11-27 18:06 | PATHOLOGY ---
[facility] Accession Number: [id number] . 01 Material submitted: . gallbladder - GALLBLADDER . 01 Clinical history: . Cholelithiasis . 02 Diagnosis: Gallbladder, cholecystectomy: - Cholelithiasis. - Chronic cholecystitis. ([facility] [facility] 11/27/2018) [facility]/11/27/2018 . 02 Comment: There is no evidence of malignancy. ([facility]:[place] [facility] 11/27/2018) . 02 Electronically signed: . Ramos Toledo MD, Pathologist NPI- [id number] . 01 Gross description: . The specimen is received in formalin, labeled "[place], gallbladder". Received is an intact gallbladder measuring 7.7 x 2.3 x 2.3 cm in greatest dimensions displaying a pink-paul to adipose covered serosal surface. Opening the specimen reveals a velvety, bile-stained mucosa with a gallbladder wall thickness of 0.1 cm. A single light green, crystalline calculus is present, and no masses or lesions are noted grossly. Perforator sections, to include the proximal margin, are submitted in cassette A1. ([facility]; 11/26/2018) QAC/QAC . 02 Pathologist provided ICD-10: K80.10 . 02 CPT . 433051 Specimen Comment: A courtesy copy of this report has been sent to Specimen Comment: [phone], . Specimen Comment: Report sent to / DR FIERRO Performed at: 01 [facility] [address], [place] [id number] MD Enrike Lezama MD Phone: [phone] Performed at: 02 [facility] [address] [place], [place] [id number] MD Ramos Toledo MD Phone: [phone]
== END 2018-11-25 13:02 | disposition home or self-care (01) ==
LOC: SURG 09:19
PROVIDERS: ATTEND Surgery
DX: K80.20 Calculus of gallbladder without cholecystitis without obstruction (principal)
CPT/HCPCS: 47563; 74300; 81025; A7015; J0696; J0780; J1100; J1885; J2001; J2250; J2405; J2704; J2710; J3010; J3490; J7030; Q9967; J1610

== ENCOUNTER → 2019-01-16 | Day surgery (SDC) | payer OTHER ==
[~2019-01-16] MED LIST changes: +AMIT25TA PO; -BUPIVAC MPF-EPI 0.5%-1:200000 30 ML VIAL. ONE; +DOCU-109 PO; -GLUCAGON,HUMAN RECOMBINANT 1 MG/ML VIAL. ONE; -HYDROmorphone 2 MG/ML VIAL IV PRN; -IOHEXOL 300 MG/ML 50 ML VIAL. ONE; +LIDOCAINE 2% PF 5 ML VIAL. ONE; +MIDAZOLAM HCL/PF 2 MG/2 ML VIAL. IV PRN; -MORPHINE SULFATE 2 MG/ML VIAL. IV PRN; +OMEP20TA63 PO; -ONDANSETRON PF 4 MG/2 ML VIAL. IV PRN; +OXYC1TAB15 PO; -PROCHLORPERAZINE 10 MG/2 ML VIAL. IV PRN; +PROPOFOL 20 ML IV ONE; -SURGICEL HEMOSTAT 4X8 EACH. ONE; +VENL75CA PO
[2019-01-16 13:05] VITALS: BP 111/72
--- NOTE | 2019-01-17 04:26 | HP ---
ADMIT DATE: 01/16/2019 REASON FOR EVALUATION: Dysphagia. HISTORY OF PRESENT ILLNESS: This is a 33-year-old female with past medical history significant for anxiety, depression, and constipation, who is seen with food sticking in the substernal location; no hematemesis or melena; with continued issues despite being on omeprazole. Consultation is requested for EGD and possible dilatation. PAST MEDICAL HISTORY: Anxiety, depression, constipation. MEDICATIONS: Include Effexor, omeprazole, and amitriptyline. SOCIAL HISTORY: She does not drink or smoke at this time. FAMILY HISTORY: Noncontributory. REVIEW OF SYSTEMS: Per records. PHYSICAL EXAMINATION: GENERAL: Reveals a well-nourished, well-developed female, who is alert, cooperative, in no acute distress. VITAL SIGNS: Temperature 97.7, pulse 87, respiratory rate 18. HEENT: Normocephalic, atraumatic head. Pupils and extraocular muscles are not tested. Sclerae are anicteric. NECK: Supple. LUNGS: Clear. CARDIOVASCULAR: Reveals S1, S2 without S3, S4, or appreciable murmur. ABDOMEN: Reveals a soft abdomen, normal bowel sounds, without appreciable hepatosplenomegaly. EXTREMITIES: Reveal no cyanosis, clubbing, or edema. IMPRESSION AND PLAN: Dysphagia, etiology to be determined. Differential includes Schatzki ring, malignancy, achalasia, eosinophilic esophagitis, Bravo's, presbyesophagus, Zenker diverticulum. Risks and benefits of procedure including risk of hemorrhage and perforation were discussed. The patient is willing to proceed at this time. JONNY ESCALONA MD DR: DEBI/maria elena JOB#: [id number] / [id number]
== END ==
LOC: ENDOS 11:14
PROVIDERS: ATTEND Internal Medicine Gastroenterology
DX: K22.2 Esophageal obstruction (principal); F41.9 Anxiety disorder, unspecified; F32.9 Major depressive disorder, single episode, unspecified; F17.210 Nicotine dependence, cigarettes, uncomplicated
CPT/HCPCS: 43235; 43450; 81025; J2001; J2704

== ENCOUNTER → 2019-01-17 | Outpatient (CLI) | payer OTHER ==
[2019-01-16 13:05] VITALS: BP 111/72
[~2019-01-17] MED LIST changes: -IV RINGERS,LACTATED 1000ML 1,000 ML IV SCH; -LIDOCAINE 1% PF 2 ML VIAL. ID PRN; -LIDOCAINE 2% PF 5 ML VIAL. ONE; -MIDAZOLAM HCL/PF 2 MG/2 ML VIAL. IV PRN; -PROPOFOL 20 ML IV ONE; -fentaNYL PF VIAL 100 MCG/2 ML VIAL IV PRN
--- NOTE | 2019-01-17 17:02 | KCIC ---
MRI Brain without contrast History: Memory changes, difficulty verbalizing thoughts, short-term memory loss, lack of concentration Technique: Multiplanar, multisequential noncontrast MR imaging was performed of the brain. Comparison: None Findings: There is no evidence of recent infarct or cytotoxic edema. The ventricles, sulci, and cisterns are within normal limits in size and configuration. There is no significant midline shift, intraaxial mass effect, or focal abnormal extra-axial fluid collection. There is no significant signal abnormality of the brain parenchyma. There is preservation of the major intracranial flow-voids at the skull base. The mastoid air cells are aerated. The cerebellar tonsils are normal in location. There is no significant abnormality of the pineal gland or pituitary gland. There is patchy mild to moderate bilateral ethmoid air cell mucosal thickening. Decreased signal of the marrow of the clivus is likely due to residual red marrow in a patient this age. There is likely cyst associated with the right adenoid about 0.5 cm. Impression: 1. There is no significant intracranial abnormality. Electronically signed by: Josh Spring MD (01/17/2019 4:59 PM) [facility]
== END | disposition home or self-care (01) ==
LOC: KCIC MRI 16:01
PROVIDERS: ATTEND Registered Nurse
DX: J34.89 Other specified disorders of nose and nasal sinuses (principal); R41.3 Other amnesia; Z90.49 Acquired absence of other specified parts of digestive tract
CPT/HCPCS: 70551

== ENCOUNTER → 2020-07-19 | Outpatient (CLI) | payer OTHER ==
[2019-01-16 13:05] VITALS: BP 111/72
[~2020-07-19] MED LIST changes: +TRAZ-123 PO; -TRAZ-86 PO
--- NOTE | 2020-07-19 14:01 | RAD ---
MR#: [id number] Date of Study: 07/19/2020 Ordering Physician: EDI CHILDERS, Referring Physician: CARLYLE AVILA Tech: RT Libra (R) (N) APPROVED REPORT Test Type: Exercise Stress Nurse/Tech: Keya Hernandez RN Test Indications: Bradycardia Cardiac History: smoker Medications: See Electronic Medical Record Medical History: See Electronic Medical Record Resting ECG: SR Resting Heart Rate: 63 bpm Resting Blood Pressure: 114/71mmHg Pretest Chest Pain: None Nurse/Tech Notes lungs CTA, S1S2 Consent: The procedure was explained to the patient in lay terms. Informed consent was witnessed. Darrian eout was entered into [employer]. History and Stress Test performed by RT Libra (R) (N) Stress Symptoms Dyspnea POST EXERCISE Reason for Termination: Reached target heart rate Target HR: 158 Max HR: 167 bpm 105% of Maximum Predicted HR: bpm Exercise duration: 10:00 min:sec, 3 Stage Exercise capacity: 13.4METs Max Blood Pressure: 141/72mmHg Blood Pressure response to exercise: Normal blood pressure response during stress. Heart Rate response to exercise: normal response Chest Pain: No. Arrhythmia: No. ST Change: No. INTERPRETATION Stress EKG Conclusion: No evidence of stress induced EKG changes. Imaging Protocol IMAGE PROTOCOL: Rest Tc-99m/stress Tc-99m 1 day Rest: Stress: Viability: Radiopharm.Tc99m UmrvozalmBf21m Sestamibi Ojvz92fZo 31.2mCi Duration 13min. 13min. Img Date 07/19/2020 07/19/2020 Inj-Img Cayi54lyh. 60min. Rest Admin Site:IV - Left AntecubitalAdministrator:CRISTINA Schreiber, ARRT (R)(N) Stress Admin Site: IV - Left AntecubitalAdministrator: RT Rachelle (R)(N) STRESS DATA End Diast. Vol.84.0mlLVEDV index BSA47.0ml End Syst. Vol.22.0mlLVESV index BSA12.0ml Myocardial Rljy692.0gEject. Klseyjwf51.0% Stress Scores Regional WT0.00Summed WT1.00 Regional WM0.00Summed WM1.00 The rest and stress images show normal perfusion, normal contraction and thickening. LV Perf. Quant 17 Seg. SSS2.00 17 Seg. SRS1.00 17 Seg. SDS2.00 Stress Defect Extent (% LAD)12.50Rest Defect Extent (% LAD)0.00Rev. Defect Extent (% LAD)12.50 Stress Defect Extent (% LCX) 0.00Rest Defect Extent (% LCX)0.00Rev. Defect Extent (% LCX)0.00 Stress Defect Extent (% RCA)0.00Rest Defect Extent (% RCA)2.20Rev. Defect Extent (% RCA)0.00 Stress Defect Extent (% EFRAÍN)6.30Rest Defect Extent (% EFRAÍN)0.90Rev. Defect Extent (% EFRAÍN)6.30 Other Information Quality:Average Risk Assessment: Low Risk Conclusion 1. No evidence of stress induced EKG changes. 2. Normal perfusion at stress/rest. 3. Normal EF at > 70% 4. Low risk study Signed by : Edi Childers, Electronically Approved : 07/19/2020 14:01:22
== END ==
LOC: NM 09:41
PROVIDERS: ATTEND Internal Medicine Cardiovascular Disease
DX: R07.9 Chest pain, unspecified (principal)
CPT/HCPCS: 78452; 93017; A9500

== ENCOUNTER 2021-03-12 14:04 | Emergency (ER) | payer OTHER ==
[~2021-03-12] VITALS: Ht 152.4 cm; Wt 86.0 kg
[2021-03-12 14:42] LABS: BASO % 0 % (0-3); EOS # 0.2 x10^3/uL (0.0-0.7); EOS % 2 % (0-3); HEMATOCRIT 46.7 % (36.0-47.0); HEMOGLOBIN 16.1 g/dL (12.0-15.5); LYMPH # 1.8 x10^3/uL (1.0-4.8); LYMPH % 18 % (24-48); MEAN CORPUSCULAR HEMOGLOBIN 31 pg (25-35); MEAN CORPUSCULAR HGB CONC 35 g/dL (31-37); MEAN CORPUSCULAR VOLUME 91 fL (79-100); MONO # 0.5 x10^3/uL (0.0-1.1); MONO % 5 % (0-9); NEUT # 7.4 x10^3/uL (1.8-7.7); NEUT % 74 % (31-73); PLATELET COUNT 284 x10^3/uL (140-400); RED BLOOD COUNT 5.14 x10^6/uL (3.50-5.40); RED CELL DISTRIBUTION WIDTH 13.5 % (11.5-14.5)
[2021-03-12] MEDS ORDERED: IV NORMAL SALINE 1000ML BAG 1,000 ML IV ONE (14:45)
[2021-03-12] MEDS ORDERED: MORPHINE SULFATE 4 MG/ML INJ. IVP ONE (14:45)
[2021-03-12 14:47] LABS: BILIRUBIN,URINE NEGATIVE (NEG); CLARITY,URINE CLEAR; COLOR,URINE YELLOW; NITRITE,URINE NEGATIVE (NEG); PROTEIN,URINE NEGATIVE (NEG-TRACE)
[2021-03-12 14:52] LABS: CALCIUM 8.4 mg/dL (8.5-10.1); CREATININE 0.7 mg/dL (0.6-1.0); GFR 95.2; POTASSIUM 4.2 mmol/L (3.5-5.1)
[2021-03-12 14:55] LABS: BACTERIA,URINE FEW /HPF (0-FEW); RBC,URINE OCC /HPF (0-2)
[2021-03-12 14:58] LABS: ALBUMIN 3.7 g/dL (3.4-5.0); ALBUMIN/GLOBULIN RATIO 1.1 (1.0-1.7)
[2021-03-12 15:23] LABS: BARBITURATES NEG (NEG); BENZODIAZEPINES NEG (NEG); CANNABINOIDS POS (NEG); COCAINE NEG (NEG); METHADONE NEG (NEG); OPIATES NEG (NEG); PHENCYCLIDINE NEG (NEG)
--- NOTE | 2021-03-12 15:23 | PHYS DOC ---
Past Medical History Past Medical History: Kidney Stone (MARISELA LABOY CAPSULE MACHINE OPERATOR) Past Surgical History: Cholecystectomy, Tubal ligation Additional Past Surgical Histo: HERNIA (MARISELA LABOY CAPSULE MACHINE OPERATOR) Smoking Status: Current Every Day Smoker Alcohol Use: None Drug Use: Marijuana (MARISELA LABOY CAPSULE MACHINE OPERATOR) General Adult EDM: Chief Complaint: NAUSEA/VOMITING/DIARRHEA HPI: HPI: Patient is a 35 year old female with history of cholecystectomy, marijuana use, kidney stones, current smoker, who presents to the ED today complaining of moderate epigastric abdominal pain radiating to bilateral back, symptoms have been going on for 2 weeks. Patient also complaining of nausea and vomiting for 2 weeks. Describes the vomiting as "brown lining". Denies any other specific exacerbating or relieving her pain. Describes the pain as sharp and constant. Patient states she was seen at [facility] emergency room 2 weeks ago for the same complaint. She states she was informed she has kidney stone as well as a bowel blockage. She states she does not remember being discharged from [facility] neither did she get any discharge paperwork. She states she was in so much pain when she left [facility]. Denies any hematemesis or melena. Reports chronic diarrhea that began after cholecystectomy. Patient has a lot of visits at [facility] (MARISELA LABOY CAPSULE MACHINE OPERATOR) Review of Systems: Review of Systems: Constitutional: Denies fever or chills. [] Eyes: Denies change in visual acuity. [] HENT: Denies nasal congestion or sore throat. [] Respiratory: Denies cough or shortness of breath. [] Cardiovascular: Denies chest pain or edema. [] GI: Reports abdominal pain with nausea and vomiting, reports chronic diarrhea after her gallbladder was removed 2 years ago denies bloody stools : Denies dysuria. [] Musculoskeletal: Denies back pain or joint pain. [] Integument: Denies rash. [] Neurologic: Denies headache, focal weakness or sensory changes. [] Psychiatric: Denies depression or anxiety. [] (MARISELA LABOY CAPSULE MACHINE OPERATOR) Heart Score: C/O Chest Pain: N/A Risk Factors: Risk Factors: DM, Current or recent (<one month) smoker, HTN, HLP, family history of CAD, obesity. Risk Scores: Score 0 - 3: 2.5% MACE over next 6 weeks - Discharge Home Score 4 - 6: 20.3% MACE over next 6 weeks - Admit for Clinical Observation Score 7 - 10: 72.7% MACE over next 6 weeks - Early Invasive Strategies (MARISELA LABOY Marli CAPSULE MACHINE OPERATOR) Current Medications: Current Medications Medications (Trade) Dose Ordered Sig/Greer Start Time Stop Time Status Last Admin Dose Admin Morphine Sulfate (Morphine Sulfate) 4 mg 1X ONCE 03/12/21 14:45 03/12/21 14:52 DC 03/12/21 14:58 4 MG Multi-Ingredient Mouthwash/Gargle (Gi Cocktail) 20 ml 1X ONCE 03/12/21 15:45 03/12/21 15:46 Sodium Chloride 1,000 ml @ 1,000 mls/hr 1X ONCE 03/12/21 14:45 03/12/21 15:44 03/12/21 14:57 1,000 MLS/HR (MARISELA LABOY Marli CAPSULE MACHINE OPERATOR) Allergies: Allergies: Allergies Coded Allergies Type Severity Reaction Last Updated Verified azithromycin Allergy Intermediate 01/16/19 Yes (MARISELA LABOY Marli CAPSULE MACHINE OPERATOR) Physical Exam: PE: Constitutional: Well developed, well nourished, no acute distress, non-toxic appearance. [] HENT: Normocephalic, atraumatic, bilateral external ears normal, oropharynx moist, no oral exudates, nose normal. [] Eyes: PERRLA, EOMI, conjunctiva normal, no discharge. [] Neck: Normal range of motion, no tenderness, supple, no stridor. [] Cardiovascular:Heart rate regular rhythm, no murmur [] Lungs & Thorax: Bilateral breath sounds clear to auscultation [] Abdomen: Bowel sounds normal, soft, mild epigastric tenderness, no right upper quadrant or right lower quadrant, no masses, no pulsatile masses. [] Skin: Warm, dry, no erythema, no rash. [] Back: No tenderness, no CVA tenderness. [] Extremities: No tenderness, no cyanosis, no clubbing, ROM intact, no edema. [] Neurologic: Alert and oriented X 3, normal motor function, normal sensory function, no focal deficits noted. [] Psychologic: Flat affect (MARISELA LABOY Marli CAPSULE MACHINE OPERATOR) Current Patient Data: Labs: Laboratory Tests Test 03/12/21 14:18 10/16/21 14:29 White Blood Count 10.0 x10^3/uL (4.0-11.0) Red Blood Count 5.14 x10^6/uL (3.50-5.40) Hemoglobin 16.1 g/dL (12.0-15.5) H Hematocrit 46.7 % (36.0-47.0) Mean Corpuscular Volume 91 fL (79-100) Mean Corpuscular Hemoglobin 31 pg (25-35) Mean Corpuscular Hemoglobin Concent 35 g/dL (31-37) Red Cell Distribution Width 13.5 % (11.5-14.5) Platelet Count 284 x10^3/uL (140-400) Neutrophils (%) (Auto) 74 % (31-73) H Lymphocytes (%) (Auto) 18 % (24-48) L Monocytes (%) (Auto) 5 % (0-9) Eosinophils (%) (Auto) 2 % (0-3) Basophils (%) (Auto) 0 % (0-3) Neutrophils # (Auto) 7.4 x10^3/uL (1.8-7.7) Lymphocytes # (Auto) 1.8 x10^3/uL (1.0-4.8) Monocytes # (Auto) 0.5 x10^3/uL (0.0-1.1) Eosinophils # (Auto) 0.2 x10^3/uL (0.0-0.7) Basophils # (Auto) 0.0 x10^3/uL (0.0-0.2) Urine Collection Type Unknown Urine Color Yellow Urine Clarity Clear Urine pH 6.0 (<5.0-8.0) Urine Specific [place] >=1.030 (1.000-1.030) Urine Protein Negative mg/dL (NEG-TRACE) Urine Glucose (UA) Negative mg/dL (NEG) Urine Ketones (Stick) Trace mg/dL (NEG) Urine Blood Moderate (NEG) Urine Nitrite Negative (NEG) Urine Bilirubin Negative (NEG) Urine Urobilinogen Dipstick 1.0 mg/dL (0.2 mg/dL) Urine Leukocyte Esterase Trace (NEG) Urine RBC Occ /HPF (0-2) Urine WBC 1-4 /HPF (0-4) Urine Squamous Epithelial Cells Many /LPF Urine Bacteria Few /HPF (0-FEW) Urine Mucus Marked /LPF Sodium Level 139 mmol/L (136-145) Potassium Level 4.2 mmol/L (3.5-5.1) Chloride Level 103 mmol/L (98-107) Carbon Dioxide Level 24 mmol/L (21-32) Anion Gap 12 (6-14) Blood Urea Nitrogen 11 mg/dL (7-20) Creatinine 0.7 mg/dL (0.6-1.0) Estimated GFR (Cockcroft-Gault) 95.2 BUN/Creatinine Ratio 16 (6-20) Glucose Level 92 mg/dL (70-99) Calcium Level 8.4 mg/dL (8.5-10.1) L Total Bilirubin 1.0 mg/dL (0.2-1.0) Aspartate Amino Transferase (AST) 13 U/L (15-37) L Alanine Aminotransferase (ALT) 20 U/L (14-59) Alkaline Phosphatase 81 U/L (46-116) Total Protein 7.0 g/dL (6.4-8.2) Albumin 3.7 g/dL (3.4-5.0) Albumin/Globulin Ratio 1.1 (1.0-1.7) Lipase 44 U/L (73-393) L POC Urine HCG, Qualitative Hcg negative (Negative) Laboratory Tests 03/12/21 14:18 Laboratory Tests 03/12/21 14:18 Vital Signs: Vital Signs Date Time Temp Pulse Resp B/P (MAP) Pulse Ox O2 Delivery O2 Flow Rate FiO2 03/12/21 14:58 16 96 03/12/21 14:20 98.1 85 125/73 (90) Room Air 98.1 (MARISELA LABOY APRN) EKG: EKG: [] (MARISELA LABOY APRN) Radiology/Procedures: Radiology/Procedures: []PROCEDURE: CT ABDOMEN PELVIS WO CONTRAST CT ABDOMEN+PELVIS WO History: Abdominal pain, history of kidney stones. Comparison: CT abdomen and pelvis 09/15/2018 Technique: Noncontrast CT of the abdomen and pelvis. Findings: Lung bases are clear. The liver, spleen, pancreas, and adrenal glands are unremarkable. The gallbladder is surgically absent. No biliary ductal dilatation. There is no hydronephrosis or perinephric stranding. There is a 1-2 mm punctate nonobstructing stone in the right interpolar kidney. No hydroureter or ureterolithiasis. The bladder is mostly decompressed and unremarkable. Uterus contains an appropriately positioned intrauterine device. Unchanged pelvic phl eboliths. No adnexal masses. The stomach and small bowel are unremarkable. Normal appendix. Unremarkable colon. No pericolonic inflammatory changes. No intra-abdominal free air or free fluid. Vasculature is within normal limits. Osseous structures and soft tissues are unremarkable. Impression: 1. No acute abdominopelvic findings. 2. Punctate nonobstructing 1-2 mm right renal nephrolith. ------ Exposure: One or more of the following individualized dose reduction techniques were utilized for this examination: 1. Automated exposure control 2. Adjustment of the mA and/or kV according to patient size 3. Use of iterative reconstruction technique. Electronically signed by: Subhash Marshall MD (03/12/2021 3:34 PM) [id number] DICTATED and SIGNED BY: SUBHASH MARSHALL MD DATE: 03/12/21 [id number] 0 (MARISELA LABOY APRN) Course & Med Decision Making: Course & Med Decision Making Pertinent Labs and Imaging studies reviewed. (See chart for details) This is a 35-year-old female patient presented to the ED today complaining of abdominal pain with nausea vomiting as well as pain radiating to the back, symptoms have been going on for 2 weeks. Was seen at [facility] 2 weeks ago and was diagnosed with kidney stones. She states she left [facility] with a lot of pain and cannot remember receiving any discharge information. Documentation at [facility] shows this patient has drug-seeking behavior. Patient's labs are negative for any acute findings, CT of the abdomen and pelvic was negative for any acute findings, noted for a 1 to 2 mm renal calculi. Results were communicated to patient, she started asking what she will take for pain. Informed patient she can follow-up with the PCP or take [id number] remedies. Informed patient she should consider not using marijuana because she likely has cyclic vomiting. Informed patient she should consider following up with GI. She states she has already seen GI and they have already done a colonoscopy which was negative. (MARISELA LABOY APRN) Dragon Disclaimer: Dragon Disclaimer: This electronic medical record was generated, in whole or in part, using a voice recognition dictation system. (MARISELA LABOY APRN) Departure Departure Impression: Primary Impression: Abdominal pain Qualified Codes: R10.13 - Epigastric pain Additional Impressions: Nausea and vomiting Qualified Codes: R11.2 - Nausea with vomiting, unspecified Kidney stone on right side Disposition: HOME / SELF CARE / HOMELESS Condition: STABLE Referrals: NO PCP (PCP) ANGELLA FIERRO MD follow up next week Patient Instructions: Abdominal Pain, Marijuana Abuse-Brief, Nausea and Vomiting, [id number] Additional Instructions: You were evaluated in the emergency room with abdominal pain nausea and vomiting. Your CT of the abdomen and pelvic is negative for any acute findings. Your labs are negative for any acute findings. You were noted for using marijuana. Please consider not using this drug, it causes people cyclic vomiting. Please follow-up with your GI doctor provided next week. Scripts Ondansetron (ONDANSETRON ODT) 4 Mg Tab.rapdis 1 TAB PO PRN Q6-8HRS, #16 TAB Prov: MARISELA LABOY APRN 03/12/21 Attending Signature Attending Signature I have reviewed the PA/HEAD OF MARKETING [employer]NALYTICS's note and plan of care. I was available for consultation as needed during the patient's visit in the emergency department. I agree with the clinical impression, plan, and disposition. (ANGELLA MONTALVO DO) MARISELA LABOY APRN Mar 12, 2021 15:23 ANGELLA MONTALVO DO Mar 13, 2021 07:15
[2021-03-12 15:26] LABS: AMPHETAMINE/METHAMPHETAMINE NEG (NEG)
--- NOTE | 2021-03-12 15:37 | RAD ---
CT ABDOMEN+PELVIS WO History: Abdominal pain, history of kidney stones. Comparison: CT abdomen and pelvis 09/15/2018 Technique: Noncontrast CT of the abdomen and pelvis. Findings: Lung bases are clear. The liver, spleen, pancreas, and adrenal glands are unremarkable. The gallbladd er is surgically absent. No biliary ductal dilatation. There is no hydronephrosis or perinephric stranding. There is a 1-2 mm punctate nonobstructing stone in the right interpolar kidney. No hydroureter or ureterolithiasis. The bladder is mostly decompresse d and unremarkable. Uterus contains an appropriately positioned intrauterine device. Unchanged pelvic phleboliths. No adnexal masses. The stomach and small bowel are unremarkable. Normal appendix. Unremarkable colon. No pericolonic inf lammatory changes. No intra-abdominal free air or free fluid. Vasculature is within normal limits. Os seous structures and soft tissues are unremarkable. Impression: 1. No acute abdominopelvic findings. 2. Punctate nonobstructing 1-2 mm right renal nephrolith. ------ Exposure: One or more of the following individualized dose reduction techniques were utilized for thi s examination: 1. Automated exposure control 2. Adjustment of the mA and/or kV according to patient size 3. Use of iterative reconstruction technique. Electronically signed by: Subhash Daigle MD (03/12/2021 3:34 PM) [id number]
[2021-03-12] MEDS ORDERED: LIDO:MAALOX 1:1 20 ML SINGLE DOSE. SWSW ONE (15:45)
[2021-03-12] MEDS ORDERED: ONDA4TAB12 PO (16:24)
[2021-03-12 16:30] VITALS: BP 105/57
== END 2021-03-12 16:46 | disposition home or self-care (01) ==
LOC: ER 14:04
DX: N20.0 Calculus of kidney (principal); R11.2 Nausea with vomiting, unspecified; F17.200 Nicotine dependence, unspecified, uncomplicated; Z90.49 Acquired absence of other specified parts of digestive tract; Z98.51 Tubal ligation status; Z88.1 Allergy status to other antibiotic agents
CPT/HCPCS: 36415; 74176; 80053; 80307; 81001; 81025; 83690; 85025; 87086; 96374; 99284; J2270; J7030